=== PATIENT | male | born 1940 | race Caucasian/White ===

== ENCOUNTER 2018-04-07 16:30 | Emergency (ER) | payer MEDICARE ==
[~2018-04-07] VITALS: Ht 170.2 cm; Wt 113.4 kg
[2018-04-07 18:10] VITALS: BP 175/105
== END 2018-04-07 18:07 | disposition home or self-care (01) ==
LOC: ER 16:30
DX: S00.83XA Contusion of other part of head, initial encounter (principal); R11.10 Vomiting, unspecified; W22.09XA Striking against other stationary object, initial encounter; Y92.512 Supermarket, store or market as the place of occurrence of the external cause; I10 Essential (primary) hypertension; E78.5 Hyperlipidemia, unspecified; E07.9 Disorder of thyroid, unspecified
CPT/HCPCS: 99282

== ENCOUNTER 2020-04-28 06:57 | Inpatient (IN) | payer MEDICARE ==
[~2020-04-28] VITALS: Ht 170.2 cm; Wt 122.6 kg
--- OUTSIDE RECORDS SUMMARY | 2020-04-28 06:59 | XMS REPORT | Summary of Care ---
Author Author ZOË Lott M.A. [facility] Organization Unknown Address [facility] Phone Unavailable Care Team Providers Care Television Equipment Operator Name Role Phone Trixie Lott M.A. Unavailable Unavailable WILMAR GALLO [place], PABLO Unavailable Unavailable NIMISHA BEVERLY, ALIYAH Banegas Unavailable Unavailable NOEMY RD [place], MILI Chamorro Unavailable Unavailable Unavailable Unavailable Functional Status Name Dates Details Functional status health issues are not documented Status: Name Dates Details Cognitive status health issues are not d ocumented Status: Problems Name Dates Details Hearing loss (389.9, H91.90) Status: Active Hypothyroidism (244.9, E03.9) Status: Active Morbid obesity (278.01, E66.01) Status: Active Mixed hyperlipidemia (272.2, E78.2) Status: Active Medications Name Dates Details Pravastatin Sodium 20 MG Oral Tablet TAKE 1 TABLET DAILY. * Start : 06-Nov-2019 Active Levothyroxine Sodium 50 MCG Oral Tablet TAKE 1 TABLET DAILY. * Refills: 0 * Start : 06-Nov-2019 Active Losartan Potassium 100 MG Oral Tablet TAKE 1 TABLET DAILY. * Quantity: 90 Refills: 1 * Start : 06-Nov-2019 Active Tamsulosin HCl - 0.4 MG Oral Capsule TAKE 1 CAPSULE DAILY * Quantity: 90 Refills: 1 * Start : 06-Nov-2019 Active Allergies and Adverse Reactions Name Dates Details No Known Drug Allergies (Allergy) Status : Active Past Medical History Name Dates Details History of hypertension (V12.59, Z86.79) Status: Resolved Procedures Procedure Dates Details History of Tonsillectomy Completed Immunization Name Dates Details Varicella Disease on: Nov-1947 Fluzone High-Dose 0.5 ML Intramuscular S uspension Prefilled Syringe on: 19-Aug-2018 Family History Name Dates Details Family history of intellectual disabilit y (V18.4, Z81.0) Status: Active Name Dates Details Family history of malignant neoplasm of colon (V16.0, Z80.0) Status: Active Social History Name Dates Details - Status: Name Dates Details Never smoked tobacco (finding) Vital Signs Date Test Result Details No Known Vitals to report Results Date Description Value Details Results not documented Plan of Care Name Dates Details Planned Observations Planned Goals not documented Instructions Name Dates Details Instructions not documented Encounters Appointment; PABLO URBAN D.O. Encounter Diagnosis: Problem not documented On: 06-Nov-2019 13:00 Appointment; AMADEO BEASLEY Encounter Diagnosis: Problem not documented On: 04-Dec-2019 13:00 Appointment; MILI SALGUERO RD Encounter Diagnosis: Problem not documented On: 01-Jan-2020 11:00
--- OUTSIDE RECORDS SUMMARY | 2020-04-28 06:59 | XMS REPORT | Summary of Care ---
Author ZOË Mandel M.A. r Organization Unknown Address [facility] Phone Unavailable Care Team Providers Care Luncheonette Manager Name Role Phone Clif Butcher M.A. Unavailable Unavailable YE DO AL, LORENARISSA Unavailable Unavailable ALIYAH BANSAL MD Unavailable Unavailable Unavailable Unavailable Functional Status Name Dates Details Functional status health issues are not documented Status: Name Dates Details Cognitive status health issues are not d ocumented Status: Problems Name Dates Details Hearing loss (389.9, H91.90) Status: Active Hypothyroidism (244.9, E03.9) Status: Active Mixed hyperlipidemia (272.2, E78.2) Status: Active Morbid obesity (278.01, E66.01) Status: Active Medications Name Dates Details Pravastatin [...] Z86.79) Status: Resolved Procedures Procedure Dates Details [QH] LIPID PANEL WITH REFLEX TO DIRECT LDL Date: 06-Nov-2019 [[facility]] CBC (INCLUDES DIFF/PLT) Date: 06-Nov-2019 [[facility]] CMP W/EGFR Date: 06-Nov-2019 [[facility]] TSH, 3RD GENERATION W/REFLEX TO FT4 Date: 06-Nov-2019 History of Tonsillectomy Completed Immunization Name Dates Details Varicella Disease on: Nov-1947 Fluzone High-Dose 0.5 ML Intramuscular S uspension Prefilled Syringe on: 19-Aug-2018 Family History Name Dates Details Family history of intellectual disabilit y (V18.4, Z81.0) Status: Active Name Dates Details Family history of malignant neoplasm of colon (V16.0, Z80.0) Status: Active Social History Name Dates Details - Status: Name Dates Details Never smoker Vital Signs Date Test Result Details [id number] BP Systolic 117 mm[Hg] Status: Comments: Lo cation: LUE; Position: Sitting BP Diastolic 76 mm[Hg] Status: Comments: Lo cation: LUE; Position: Sitting Physical Findings 1 Status: Comments: PH Q-9 Adult Depression Screening Physical Findings 0 Status: Comments: Al cohol Screen - How many times in the past yr have you had 5 (for M) or 4 (for F) or 4 (for all > 65yrs) or more drinks in a day? Weight 269 lb Status: Height 67.5 in Status: Body Mass Index Calculated 41.51 kg/m2 Status: Body Surface Area Calculated 2.31 m2 Status: Temperature 97.2 f Status: Comments: Me thod: Temporal Respiration Rate 81 /min Status: Heart Rate 81 /min Status: Results Date Description Value Details [id number] [[facility]] CMP W/EGFR Glucose 125 mg/dL (Above high threshold ) Range: 65-99 BUN 13 mg/dL Range: 8-27 Creatinine 0.97 mg/dL Range: 0.76-1.27 eGFR If NonAfricn Am 75 mL/min/1.7 Range: >59 eGFR If Africn Am 87 mL/min/1.7 Range: >59 BUN/Creatinine Ratio 13 Range: 10-2 4 Sodium, Serum 140 mmol/L Range: 134-144 Potassium 4.5 mmol/L Range: 3.5-5.2 Chloride 99 mmol/L Range: 96-106 Carbon Dioxide, Total 24 mmol/L Range: 20- 29 Calcium, Serum 9.4 mg/dL Range: 8.6-10.2 Protein, Total 7.4 g/dL Range: 6.0-8.5 Albumin 5.0 g/dL (Above high threshold) Range: 3.5-4.8 Globalulin, Total 2.4 g/dL Range: 1.5-4.5 A/G Ratio 2.1 Range: 1.2-2.2 Bilirubin, Total 0.8 mg/dL Range: 0.0-1.2 Alkaline Phosphatase 52 {IU/L} Range: 39-1 17 AST (SGOT) 23 {IU/L} Range: 0-40 ALT (SGPT) 25 {IU/L} Range: 0-44 [id number] [[facility]] CBC (INCLUDES DIFF/PLT) WBC 7.8 {x10E3/uL} Range: 3.4-10.8 RBC 4.87 {x10E6/uL} Range: 4.14-5.8 0 Hemoglobin 14.2 g/dL Range: 13.0-17.7 Hematocrit 42.8 % Range: 37.5-51.0 MCV 88 fL Range: 79-97 MCH 29.2 pg Range: 26.6-33.0 MCHC 33.2 g/dL Range: 31.5-35.7 RDW 13.9 % Range: 12.3-15.4 Comments: Effective November 24, 2019, the RDW pediatric reference interval will be removed and the adult reference interval will be changing to: Female 11.7 - 15.4 Male 11.6 - 15.4 Platelets 272 {x10E3/uL} Range: 150-450 Neutrophils 54 % Range: Not Estab . Lymphs 36 % Range: Not Estab . Monocytes 9 % Range: Not Estab . Eos 1 % Range: Not Estab . Basos 0 % Range: Not Estab . Immature Cells Neutrophils (Absolute) 4.2 {x10E3/uL} Range: 1. 4-7.0 Lymphs (Absolute) 2.8 {x10E3/uL} Range: 0.7-3.1 Monocytes(Absolute) 0.7 {x10E3/uL} Range: 0.1-0 .9 Eos (Absolute) 0.1 {x10E3/uL} Range: 0.0-0.4 Baso (Absolute) 0.0 {x10E3/uL} Range: 0.0-0.2 Immature Granulocytes 0 % Range: Not Estab. Immature Grans (Abs) 0.0 {x10E3/uL} Range: 0.0- 0.1 NRBC Hematology Comments: [id number] [L] LP Cholesterol, Total 208 mg/dL (Above high thresh old) Range: 100-199 Triglycerides 241 mg/dL (Above high threshold ) Range: 0-149 HDL Cholesterol 39 mg/dL (Below low threshold) Range: >39 VLDL Cholesterol Juan J 48 mg/dL (Above high thres hold) Range: 5-40 LDL Cholesterol Calc 121 mg/dL (Above high thre shold) Range: 0-99 Comment: [id number] [[facility]] TSH, 3RD GENERATION TSH 2.890 {uIU/mL} Range: 0.450-4.5 00 Plan of Care Name Dates Details Planned Observations Planned Goals not documented Planned Encounters Appointment; AMADEO BEASLEY On: 04-Dec-2019 13:00 Appointment; MILI SALGUERO RD On: 01-Jan-2020 11:00 Appointment; PABLO URBAN D.O. On: 05-Feb-2020 15:00 Instructions Name Dates Details Instructions not documented Encounters Appointment; PABLO URBAN D.O. Encounter Diagnosis: Problem not documented On: 06-Nov-2019 13:00
--- OUTSIDE RECORDS SUMMARY | 2020-04-28 06:59 | XMS REPORT | Summary of Care ---
Author Author [facility] Organization [facility] Address Unknown Phone Unavailable Encounter HQ Encntr_alias(FIN) [id number] Date(s): 05/14/18 - 05/14/18 [facility] [place] [address] [place] [phone] Discharge Disposition: Home or Self Care Attending Physician: Davey Lyman MD Vital Signs No data available for this section Problem List No data available for this section Allergies, Adverse Reactions, Alerts No data available for this section Medications No data available for this section Results No data available for this section Immunizations No data available for this section Procedures No data available for this section Social History No data available for this section Assessment and Plan No data available for this section
--- OUTSIDE RECORDS SUMMARY | 2020-04-28 06:59 | XMS REPORT | Summary of Care ---
Author Author ZOË SALGUERO RD [facility] Organization Unknown Address Unknown Phone Unavailable Care Team Providers Care Senior Instructional Designer Name Role Phone NOEMY GILBERT, MILI Unavailable Unavailable PABLO ENGLISH Unavailable Unavailable ALIYAH BANSAL MD Unavailable Unavailable NOEMY GILBERT [place], [facility] J Unavailable Unavailable Unavailable Unavailable Functional Status Name [...] smoker Vital Signs Date Test Result Details [id number] Height 67.5 in Status: Weight 277.6 lb Status: Body Mass Index Calculated 42.84 kg/m2 Status: Body Surface Area Calculated 2.34 m2 Status: Results Date Description Value Details Results not documented Plan of Care Name Dates Details Planned Observations Planned Goals not documented Planned Encounters Appointment; PABLO URBAN D.O. On: 05-Feb-2020 15:00 Appointment; MILI SALGUERO RD On: 12-Feb-2020 15:00 Interventions Provided Plan* The following items regarding the patient's goals were discussed and reviewed in detail on 01/01/2020. * Blood Sugar Monitoring * Nutrition * * Portion control: To begin, eat less of what is typically eaten and by 2 weeks cut portions in half. * * Use label information to make wiser food choices, and count carbs as instructed. * * AVOID all sugary beverages to include juice, regular soda, punch, sugared tea and sports drinks. * * Fat sources discussed and suggestion made to limit added and hidden fat. These fat grams should be considered as allowed daily fat servings. * Exercise * * Exercise 3-5 times each week for 30-60 minutes. * * Do light weight lifting during downtime in evening. * * Do basic calisthenics each day for 10-15 minutes. * Miscellaneous Discussion/Summary* Patient's understanding of counseling material was excellent interacted well asked questions, which were answered * Learning barriers include: None. Instructions Name Dates Details Instructions not documented Encounters Appointment; PABLO URBAN D.O. Encounter Diagnosis: Problem not documented On: 06-Nov-2019 13:00 Appointment; AMADEO BEASLEY Encounter Diagnosis: Problem not documented On: 04-Dec-2019 13:00 Appointment; MILI SALGUERO RD Encounter Diagnosis: Problem not documented On: 01-Jan-2020 11:00
--- OUTSIDE RECORDS SUMMARY | 2020-04-28 06:59 | XMS REPORT | Continuity of Care Document ---
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 05/14/2018 [facility] [place] Diagnosis Active 2018-05-14 00:01:00 2018-05-14 14:37:00 Gustabo French 490 - BRONCHITIS NOS 490 - BRONCHITIS NOS Active 10/25/2011 [facility] [place] Diagnosis Active 2011-10-25 00:01:00 2011-10-25 10:47:00 [facility] [place] History of hypertension History of hypertension Problem Resolved [facility] Hearing loss Hearing loss Problem Active [facility] Hypothyroidism Hypothyroidism Problem Active [facility] Mixed hyperlipidemia Mixed hyperlipidemia Problem Active [facility] Morbid obesity Morbid obesity Problem Active [facility] Allergies, Adverse Reactions, Alerts Allergy Name Allergy Type Status Severity Reaction(s) Onset Date Inacti ve Date Treating Clinician Comments Source No Known Allergies DA Active U 2015-05-27 00:00:00 [facility] Family History Family Member Diagnosis Comments Start Date Stop Date Source natural daughter Family history of intellectual disability [facility] Mother Family history of malignant neoplasm of colon [facility] Social History Social Habit Start Date Stop Date Quantity Comments Source Social History 2018-04-13 04:59:00 2018-04-13 04:59:00 [facility] Smoking Status Start Date Stop Date Source Never smoked tobacco (finding[facility] Medications Ordered Medication Name Filled Medication Name Start Date Stop Da te Current Medication? Ordering Clinician Indication Dosage Frequency Signature (SIG) Comments Components Source Pravastatin Sodium 20 MG Oral Tablet Pravastatin Sodium 20 M G Oral Tablet 2019-11-06 00:00:00 Yes 1 QD TAKE 1 TABLET DOROTHY Y. [facility] Levothyroxine Sodium 50 MCG Oral Tablet Levothyroxine Sodium 50 MCG Oral Tablet 2019-11-06 00:00:00 Yes 1 QD TAKE 1 TABLET DOROTHY Y. [facility] Losartan Potassium 100 MG Oral Tablet Losartan Potassium 100 MG Oral Tablet 2019-11-06 00:00:00 Yes 1 QD TAKE 1 TABLET DOROTHY Y. [facility] Tamsulosin HCl - 0.4 MG Oral Capsule Tamsulosin HCl - 0.4 MG Oral Capsule 2019-11-06 00:00:00 Yes 1 QD TAKE 1 CAPSULE BELTRAN LY [facility] Immunizations Ordered Immunization Name Filled Immunization Name Date Status Comments Source Fluzone High-Dose 0.5 ML Intramuscular Suspension Prefilled Syringe 2018-08-19 00:00:00 Completed [facility] Varicella Disease Unknown Completed [facility] Vital Signs Vital Name Observation Time Observation Value Comments Source Height 2020-01-01 12:50:00 67.5 [in_us] [facility] Weight 2020-01-01 12:50:00 277.6 [lb_av] [facility] Body Mass Index Calculated 2020-01-01 12:50:00 42.84 kg/m2 [facility] BP Systolic 2019-11-06 13:12:00 117 mm[Hg] Location: SHADI Anderws on: Sitting [facility] BP Diastolic 2019-11-06 13:12:00 76 mm[Hg] Location: SHADI Andrews on: Sitting [facility] Weight 2019-11-06 13:12:00 269 [lb_av] [facility] Height 2019-11-06 13:12:00 67.5 [in_us] [facility] Body Mass Index Calculated 2019-11-06 13:12:00 41.51 kg/m2 [facility] Temperature 2019-11-06 13:12:00 97.2 [degF] Method: Temporal [facility] Respiration Rate 2019-11-06 13:12:00 81 /min [facility] Heart Rate 2019-11-06 13:12:00 81 /min [facility] Procedures Procedure Date / Time Performed Performing Clinician Sourc e [QH] LIPID PANEL WITH REFLEX TO DIRECT LDL 2019-11-06 00:00:00 [facility] [[facility]] CBC (INCLUDES DIFF/PLT) 2019-11-06 00:00:00 [facility] [[facility]] CMP W/EGFR 2019-11-06 00:00:00 [facility] [[facility]] TSH, 3RD GENERATION W/REFLEX TO FT4 2019-11-06 00:00:00 [facility] History of Tonsillectomy [facility] Encounters Start Date/Time End Date/Time Encounter Type Admission Type Att[facility] Facility Care Department Encounter ID Source 2020-01-01 11:00:00 2020-01-01 11:00:00 Appointment; MILI SALGUERO RD WRIGHT, TISH, RD [id number] 2019-12-04 13:00:00 2019-12-04 13:00:00 Appointment; EMA BEASLEY KIMBERLY [facility] [id number] [facility] 2019-11-06 13:00:00 2019-11-06 13:00:00 Appointment; PABLO URBAN D.O. YEH, SHAO-CHUN, D.O. [facility] Family Practice [facility] [id number] [facility] 2018-05-14 14:25:00 2018-05-14 23:59:00 Outpatient Davey Lyman HOIP HOIP [id number] 2018-04-12 08:03:00 2018-04-12 23:59:00 Outpatient Davey Lyman OIP OIP [id number] 2018-04-07 16:30:00 2018-04-07 18:07:[address] [facility] [id number] [facility] Results Test Description Test Time Test Comments Results Result Comments Source [[facility]] CMP W/EGFR 2019-11-06 15:20:00 Test Item Glucose; Above High Threshold (test code = 2345-7) 125 mg/dL 65- 99 BUN (test code = 3094-0) 13 mg/dL 8-27 Creatinine (test code = 2160-0) 0.97 mg/dL 0.76-1.27 eGFR If NonAfricn Am (test code = 19067-6) 75 mL/min/1.7 >59 eGFR If Africn Am (test code = 24341-2) 87 mL/min/1.7 >59 BUN/Creatinine Ratio (test code = 3097-3) 13 10-24 Sodium, Serum (test code = 2951-2) 140 mmol/L 134-144 Potassium (test code = 2823-3) 4.5 mmol/L 3.5-5.2 Chloride (test code = 2075-0) 99 mmol/L 96-106 Carbon Dioxide, Total (test code = 2027-9) 24 mmol/L 20-29 Calcium, Serum (test code = 33503-0) 9.4 mg/dL 8.6-10.2 Protein, Total (test code = 2885-2) 7.4 g/dL 6.0-8.5 Albumin; Above High Threshold (test code = 1751-7) 5.0 g/dL 3.5 -4.8 Globalulin, Total (test code = 53422-7) 2.4 g/dL 1.5-4.5 A/G Ratio (test code = 1759-0) 2.1 1.2-2.2 Bilirubin, Total (test code = 1975-2) 0.8 mg/dL 0.0-1.2 Alkaline Phosphatase (test code = 6768-6) 52 {IU/L} 39-117 AST (SGOT) (test code = 1920-8) 23 {IU/L} 0-40 ALT (SGPT) (test code = 1742-6) 25 {IU/L} 0-44 [facility]] CBC (INCLUDES DIFF/PLT)2019-11-06 15:20:00* Test Item Value Reference Range Interpretation Comments WBC (test code = 6690-2) 7.8 {x10E3/uL} 3.4-10.8 RBC (test code = 789-8) 4.87 {x10E6/uL} 4.14-5.80 Hemoglobin (test code = 718-7) 14.2 g/dL 13.0-17.7 Hematocrit (test code = 4544-3) 42.8 % 37.5-51.0 MCV (test code = 787-2) 88 fL 79-97 MCH (test code = 785-6) 29.2 pg 26.6-33.0 MCHC (test code = 786-4) 33.2 g/dL 31.5-35.7 RDW (test code = 788-0) 13.9 % 12.3-15.4 Ef fective November 24, 2019, the RDW pediatric reference interval will be removed and the adult reference interval will be changing to: Female 11.7 - 15.4 Male 11.6 - 15.4 Platelets (test code = 777-3) 272 {x10E3/uL} 150-450 Neutrophils (test code = 770-8) 54 % Not Estab. Lymphs (test code = 736-9) 36 % Not Estab. Monocytes (test code = 5905-5) 9 % Not Estab. Eos (test code = 713-8) 1 % Not Estab. Basos (test code = 706-2) 0 % Not Estab. Immature Cells (test code = Immature Cells) See Comment Neutrophils (Absolute) (test code = 751-8) 4.2 {x10E3/uL} 1.4-7.0 Lymphs (Absolute) (test code = 731-0) 2.8 {x10E3/uL} 0.7-3.1 Monocytes(Absolute) (test code = 742-7) 0.7 {x10E3/uL} 0.1-0.9 Eos (Absolute) (test code = 711-2) 0.1 {x10E3/uL} 0.0-0.4 Baso (Absolute) (test code = 704-7) 0.0 {x10E3/uL} 0.0-0.2 Immature Granulocytes (test code = 73614-7) 0 % Not Estab. Immature Grans (Abs) (test code = 65487-0) 0.0 {x10E3/uL} 0.0-0.1 NRBC (test code = 14452-1) See Comment Hematology Comments: (test code = 14832-9) See Comment [facility][L] [id number] 15:20:00* Test Item Value Reference Range Interpretation Comments Cholesterol, Total; Above High Threshold (test code = 2093-3) 20 8 mg/dL 100-199 Triglycerides; Above High Threshold (test code = 2571-8) 241 mg/dL 0-149 HDL Cholesterol; Below Low Threshold (test code = 2085-9) 39 mg/dL >39 VLDL Cholesterol Juan J; Above High Threshold (test code = 58191-3) 48 mg/dL 5-40 LDL Cholesterol Calc; Above High Threshold (test code = 98078-1) 121 mg/dL 0-99 Comment: (test code = Comment:) See Comment [facility]] TSH, 3RD [id number] 15:20:00* Test Item Value Reference Range Interpretation Comments TSH (test code = 85807-8) 2.890 {uIU/mL} 0.450-4.500 [facility] [id number] 16:37:00 RUN DATE: 10/10/19 [employer] PAGE 1 RUN TIME: 1637 Specimen Inqui ry RUN USER: INTERFACE PATIENT: ZOË RENTERIA ACCT #: V [id number] LOC: [place] U #: [id number] AGE/SX: 79/M ROOM: RE10/09/19REG DR: Jaguar Fajardo MD : 42 BED: DIS: STATUS: [facility] TLOC: SPEC #: [id number] RECD: 10/09/19 STATUS: [facility] #: [id number] MISTI: 10/09/19-1135 [facility] DR: Jaguar Fajardo MD ENTERED: 10/09/19 SP TYPE: COLONBX OTHR DR: Davey Lyman MD ORDERED: GROSS COPIES TO: Jaguar Fajardo MD [address] [place], [place] [address] Davey Lyman MD [address] [place] [address] PROCEDURES: GROSS (10/10/19-1212) TISSU ES: TRANSVERSE COLON - POLYP HOT SNARE CLINICAL HISTORY COL LECTION DATE: 10/09/19 COLON SCREENING HISTORY OF POLYPS FINAL PORTER GNOSIS Transverse colon polyps, polypectomy: TUBULAR ADENOMA (1) HYPERPLASTIC POLYPS (MULTIPLE FRAGMENTS) NEGATIVE FOR HIGH GRADE DYSPLA MYNOR OR MALIGNANCY DMW/sm D 66162 MACROSCOPIC The spec imen is received in formalin, labeled with the patient's name, and identified as "transverse colon polyps", and consists of multiple valladares biopsy fragments ra nging from 0.2 to the largest piece that measures 0.6 cm. The larger polyp is inked and trisected. The specimen is entirely submitted in a single cassette . CONTINUED ON NEXT PAGE TRI [place] DATE: 10/10/19 [facility] PAGE 2 RUN TIME: 1637 Specimen Inquiry RUN USER: INTERFACE SPEC #: [id number] PATIENT: ZOË RENTERIA #[id number] (Continued) MACROSCOPIC (Co ntinued) GROSS PERFORMED AT [facility] [place] [facility] [address] [place] [address] (P) MICROSCOPIC All of the stains, including any controls performed, stain appropriately. MICROSCOPIC PERFORMED AT [facility] [address] [place] [address] [phone] PERFORMING SITE Diagnosis performed at: [facility], [place] [address] [address] Signed SIG NATURE ON FILE Khurram Fisher MD 10/10/19 1637 ------- ----- END OF REPORT BASIC METABOLIC [id number] 13:48:00* Test Item Value Reference Range Interpretation Comments SODIUM (test code = NA) 143 mmol/L 136-145 N POTASSIUM (test code = K) 4.6 mmol/L 3.5-5.1 N CHLORIDE (test code = CL) 110.0 mmol/L 98-107 H CARBON DIOXIDE (test code = CO2) 27.0 mmol/L 21-32 N ANION GAP (test code = GAP) 10.6 10-20 N GLUCOSE (test code = GLU) 161 mg/dL 74-106 H BLOOD UREA NITROGEN (test code = BUN) 15 mg/dL 7-18 N GLOMERULAR FILTRATION RATE (test code = GFR) > 60 mL/min >=60 Estimated GFR by using Modified MDRD formula.Chronic kidney disease is defined as either kidney damageor GFR <60 mL/min/1.73 m2 for >3 months. CREATININE (test code = CREAT) 0.90 mg/dL 0.7-1.3 N BUN/CREATININE RATIO (test code = BUN/CREA) 15.9 10-20 N CALCIUM (test code = CA) 8.7 mg/dL 8.5-10.1 N CBC W/AUTO [id number] 12:59:00* Test Item Value Reference Range Interpretation Comments WHITE BLOOD CELL (test code = WBC) K/mm3 4.5-12.5 RED BLOOD CELL (test code = RBC) mill/mm3 4.0-5.8 HEMOGLOBIN (test code = HGB) 13.5 gram/dL 13.0-17.5 N HEMATOCRIT (test code = HCT) 42.6 % 42.0-52.0 N MEAN CELL VOLUME (test code = MCV) fL 80-98 MEAN CELL HGB (test code = MCH) picogram 27.0-33.0 MEAN CELL HGB CONCETRATION (test code = MCHC) gram/dL 33.0-36. 0 RED CELL DISTRIBUTION WIDTH (test code = RDW) % 11.6-16. 2 RED CELL DISTRIBUTION WIDTH SD (test code = RDW-SD) fL 37 .0-51.0 PLATELET COUNT (test code = PLT) K/mm3 150-450 MEAN PLATELET VOLUME (test code = MPV) fL 6.7-11.0 NEUTROPHIL % (test code = NT%) % 39.0-69.0 IMMATURE GRANULOCYTE % (test code = IG%) % 0.0-5.0 LYMPHOCYTE % (test code = LY%) % 25.0-55.0 MONOCYTE % (test code = MO%) % 0.0-10.0 EOSINOPHIL % (test code = EO%) % 0.0-5.0 BASOPHIL % (test code = BA%) % 0.0-1.0 NEUTROPHIL # (test code = NT#) K/mm3 1.8-7.7 LYMPHOCYTE # (test code = LY#) K/mm3 1.0-5.0 MONOCYTE # (test code = MO#) K/mm3 0-0.8 EOSINOPHIL # (test code = EO#) K/mm3 0.0-0.5 BASOPHIL # (test code = BA#) K/mm3 0.0-0.2 CBC W/AUTO [id number] 12:59:00* Test Item Value Reference Range Interpretation Comments WHITE BLOOD CELL (test code = WBC) 7.9 K/mm3 4.5-12.5 N RED BLOOD CELL (test code = RBC) 4.59 mill/mm3 4.0-5.8 N HEMOGLOBIN (test code = HGB) 13.5 gram/dL 13.0-17.5 N HEMATOCRIT (test code = HCT) 42.6 % 42.0-52.0 N MEAN CELL VOLUME (test code = MCV) 92.8 fL 80-98 N MEAN CELL HGB (test code = MCH) 29.4 picogram 27.0-33.0 N MEAN CELL HGB CONCETRATION (test code = MCHC) 31.7 gram/dL 33.0-36. 0 L RED CELL DISTRIBUTION WIDTH (test code = RDW) 13.3 % 11.6-16. 2 N RED CELL DISTRIBUTION WIDTH SD (test code = RDW-SD) 45.1 fL 37 .0-51.0 N PLATELET COUNT (test code = PLT) 240 K/mm3 150-450 N MEAN PLATELET VOLUME (test code = MPV) 10.4 fL 6.7-11.0 N NEUTROPHIL % (test code = NT%) 59.7 % 39.0-69.0 N IMMATURE GRANULOCYTE % (test code = IG%) 0.3 % 0.0-5.0 N LYMPHOCYTE % (test code = LY%) 28.6 % 25.0-55.0 N MONOCYTE % (test code = MO%) 8.4 % 0.0-10.0 N EOSINOPHIL % (test code = EO%) 2.2 % 0.0-5.0 N BASOPHIL % (test code = BA%) 0.8 % 0.0-1.0 N NUCLEATED RBC % (test code = NRBC%) 0.0 % 0-0 N NEUTROPHIL # (test code = NT#) 4.72 K/mm3 1.8-7.7 N IMMATURE GRANULOCYTE # (test code = IG#) 0.02 x10 3/uL 0-0.03 N LYMPHOCYTE # (test code = LY#) 2.25 K/mm3 1.0-5.0 N MONOCYTE # (test code = MO#) 0.66 K/mm3 0-0.8 N EOSINOPHIL # (test code = EO#) 0.17 K/mm3 0.0-0.5 N BASOPHIL # (test code = BA#) 0.06 K/mm3 0.0-0.2 N NUCLEATED RBC # (test code = NRBC#) 0.00 K/mm3 0.0-0.1 N MANUAL DIFF REQUIRED (test code = MDIFF) NO
--- OUTSIDE RECORDS SUMMARY | 2020-04-28 06:59 | XMS REPORT | Continuity of Care Document ---
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 COMPARISON: Cervical spine x-ray from 04/12/2018 DISCUSSION: No definite listhesis at cervicothoracic junction based on anterior vertebral body margins.There is normal alignment of the thoracic spine vertebral bodies. Moderate midthoracic spondylosis with mild anterior wedge deformities in the midthoracic spine especially T6-T11. Bridging osteophytes suggesting diffuse idiopathic skeletal hyperostosis. No definite acute fractures or dislocations a re seen. The pedicles are grossly intact. If clinical concern persists may consider further evaluation with CT or MRI of the thoracic spine. IMPRESSION: Mild anterior wedge deformities appear chronic related to midthoracic spondylosis with diffuse idiopathic skeletal hyperostosis. However, correlate for focal tenderness in the mid to lower thoracic spine. 05/14/2018 [facility] [place] Spine lumbar 2 or 3 views DX E XAMINATION: Lumbar spine series Spine lumbar 2 or 3 views DX , 05/14/2018 2:45 PM CDT. CLINICAL INDICATION: 77 years Male - M47.23 Other spon dylosis with radiculopathy, cervicothoracic region Comparison: None available. DISCUSSION: Thoracic Spine reported separately. L4-L5 grade 1 anterolisthesis with moderate intervertebral disc height loss, facet hypertrophy, and possible pars defects are noted. No fractures or dislocations are seen. The pedicles and transverse processes are intact. Mild vascular calcifications noted. If clinical concern persists, consider further evaluation with CT or MRI of the lumbar spine. IMPRESSION: L4-L5 grade 1 anterior listhesis with moderate facet hypertrophy. If there is clinical concern for instability, consider flexion-extension views. Also consider oblique views to evaluate for pars defects. 05/14/2018 [facility] [place] Brain wo contrast CT I have re viewed this study, and concur with the previous interpretation. Brain wo contrast CT CLINICAL HISTORY: - S06.0X0D Concussion without loss of consciousness, subsequent encounter; COMPARISON: None TECHNIQUE: Contiguous transaxial images of the brain were performed without administration of IV contrast. Reformations were performed in sagittal and coronal projections. FINDINGS: BRAIN PARENCHYMA: There is no evidence for space-occupying lesions, mass effect or vasogenic edema. No evidence for parenchymal bleed, extra-axial collections or midline shift. Minimal decrease in attenuation in the periventricular white matter is likely related to chronic ischemic change from small vessel disease. No acute infarct is noted. Intracranial vascular calcifications are noted. VENTRICLES: There is dilation of ventricles and subarachnoid spaces but not out of proportion to the underlying cerebral atrophy. BRAINSTEM, SELLA AND ORBITS: No evidence for Chiari malformation. No space- occupying lesion is visualized in the sella. Visualized portion of the orbits are unremarkable. CALVARIUM AND SKULL BASE: No displaced bony fractures or other significant bony abnormality is visualized. MASTOIDS AND PARANASAL SINUSES: The visualized paranasal sinuses are clear. Mastoid air cells are clear bilaterally. IMPRESSION: No acute brain abnormality is noted. Further evaluation may be obtained with MRI of brain as clinically indicated. SL: [id number] 04/12/2018 [facility] [place] Spine cervical 2 or 3 view DX Spine cervical 2 or 3 view DX COMPARISON: None CLINICAL HISTORY: - concussion hit head 5.19.18 FINDINGS: There is no evidence for fracture or subluxation in the 1st 6 cervical vertebral bodies. The C7 vertebral body and cervicothoracic junction is not visible on the lateral examination. The prevertebral soft tissues are within normal limits. There is anterior spondylosis noted at C4-C5 and C5-C6 levels. Decrease in disc space height is noted at C5-C6 level. Mild facet arthrosis is noted throughout the mid to lower C-spine IMPRESSION: No evidence for fracture or subluxation in the visualized portion of C-spine. Ndoq-ea-[id number] degenerative changes, as discussed above. Limited evaluation of the lower portion of C-spine on the current images. More detailed evaluation may be obtained with a swimmer's view and/or oblique views. NOTE: An attempt was made by the technologist to reach the patient for additional films prior to this dictation. The patient may return at his convenience and the additional images will be performed at no extra charge and addendum can be issued by the radiologist at that time. SL: [id number] 04/12/2018 [facility] [place] Consultation Notes No Data Provided for This Section Discharge Summaries No Data Provided for This Section History and Physicals No Data Provided for This Section Vital Signs No Data Provided for This Section Encounters Location Location Details Encounter Type Encounter Number Reason For Visit Attending Provider ADM Date DC Date Status Source OD [id number] 490 - BRONCHITIS NOS DAVEY KRISHNAMURTHY 10/25/2011 Active [facility] [place] [facility] [id number] Davey Krishnamurthy 04/12/2018 04/13/2018 [facility] [place] [facility] [id number] 02 Davey Krishnamurthy 05/14/2018 05/15/2018 [facility] [place] Procedures No Data Provided for This Section Assessment and Plan No Data Provided for This Section Plan of Care No Data Provided for This Section Social History Social History Date Source No data available for this section 05/15/2018 [facility] [place] No data available for this section 04/13/2018 [facility] [place] Family History No Data Provided for This Section Advance Directives No Data Provided for This Section Functional Status No Data Provided for This Section
[2020-04-28] MEDS ORDERED: ONDANSETRON HCL INJ 2MG/ML 2ML 2 MG/ML VIAL IV STA (07:22)
[2020-04-28] MEDS ORDERED: PANTOPRAZOLE 40 MG 10ML VIAL IV STA (07:22)
[2020-04-28] MEDS ORDERED: SODIUM CHLORIDE 0.9% 1000ML 1,000 ML IV STA ×3 (07:22→12:11)
[2020-04-28] MEDS ORDERED: SODIUM CHLORIDE 0.9% 1000ML 1,000 ML ONE (07:51)
[2020-04-28 07:54] LABS: BASOPHILS # (AUTO) 0.1 (0.0-0.1); BASOPHILS % 0.3 % (0.0-1.0); EOSINOPHILS # (AUTO) 0.1 (0.0-0.4); EOSINOPHILS % 0.4 % (0.0-6.0); HEMATOCRIT 42.3 % (38.2-49.6); HEMOGLOBIN 14.1 g/dL (14.0-18.0); LYMPHOCYTES # (AUTO) 0.7 (1.0-3.2); LYMPHOCYTES % 4.4 % (18.0-39.1); MEAN CORPUSCULAR HEMOGLOBIN 29.5 pg (28-32); MEAN CORPUSCULAR HGB CONC 33.3 g/dL (31-35); MEAN CORPUSCULAR VOLUME 88.5 fL (81-99); MONOCYTES # (AUTO) 1.2 (0.2-0.8); MONOCYTES % 7.1 % (4.4-11.3); NEUTROPHILS # (AUTO) 14.3 (2.1-6.9); NEUTROPHILS % 87.3 % (38.7-80.0); PLATELET COUNT 211 x10e3/uL (140-360); RED BLOOD COUNT 4.78 x10e6/uL (4.3-5.7); RED CELL DISTRIBUTION WIDTH 13.5 % (11.7-14.4)
[2020-04-28] MEDS ORDERED: PIPER-TAZ 3.375 GM 50 ML IV ONE (08:15)
[2020-04-28 08:24] LABS: ALANINE AMINOTRANSFERASE 24 IU/L (0-55); ALBUMIN/GLOBULIN RATIO 1.1 (0.8-2.0); ALKALINE PHOSPHATASE 52 IU/L (40-150); BLOOD UREA NITROGEN 18 mg/dL (7-26); BUN/CREATININE RATIO 17 (6-25); CALCIUM 9.4 mg/dL (8.4-10.2); CARBON DIOXIDE 21 mmol/L (22-29); CHLORIDE 101 mmol/L (98-107); CREATINE KINASE 119 IU/L (30-200); CREATININE, SERUM 1.09 mg/dL (0.72-1.25); EST GLOMERULAR FILTRATION RATE > 60 ML/MIN (60-); GLUCOSE 145 mg/dL (74-118); MAGNESIUM 1.6 MG/DL (1.3-2.1); SODIUM 135 mmol/L (136-145)
[2020-04-28 08:46] LABS: INR 0.9; PROTHROMBIN TIME 12.7 seconds (11.9-14.5)
[2020-04-28 08:47] LABS: PARTIAL THROMBOPLASTIN TIME 32.2 seconds (23.8-35.5)
--- NOTE | 2020-04-28 08:59 | Diagnostic Imaging Report ---
EXAMINATION: CHEST SINGLE (PORTABLE) INDICATION: Nausea, fever COMPARISON: None FINDINGS: LINES/TUBES:EKG leads overlie the chest. LUNGS:The lungs are moderately inflated. Mild bibasilar patchy opacities left greater than right. PLEURA:No pleural effusion or pneumothorax. MEDIASTINUM:The cardiomediastinal silhouette appears normal in size and shape. BONES/SOFT TISSUES:No acute osseous injury. ABDOMEN:No free air under the diaphragm. IMPRESSION: Mild left greater than right bibasilar patchy opacities, more likely subsegmental atelectasis than superimposed aspiration or pneumonia. Signed by: Janie Cortez MD on 04/28/2020 8:56 AM
--- NOTE | 2020-04-28 09:13 | Emergency Department Note ---
History of Present Illnes History of Present Illness Chief Complaint: General Medicine Complaints History of Present Illness This is a 79 year old male pt found on floor pt states he felt weak and went to the floor with diarrhea that started yesterday no blood noted states he was on the floor x 2 hr per ems pt had fever 101 on scene and states he was tachy on scene pt denies ems denies medical hx denies being on meds pt states he defecated on self. 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 Arrival Mode: [place] Atm Technician Required: No Onset (how long ago): day(s) (YESTERDAY) Quality: DIARRHEA Radiation: Reports non-radiation Severity: severe (MULTIPLE EPISODES OF WATERY STOOLS) Onset quality: sudden Timing of current episode: intermittent Progression: unchanged Chronicity: new Context: Denies recent illness Relieving factors: none Exacerbating factors: none Associated symptoms: Reports fever/chills, Reports nausea/vomiting (MILD, 2 EPISODES OF VOMITING), Reports weakness (GENERALIZED) Treatments prior to arrival: none Past Medical/Family History Physician Review I have reviewed the patient's past medical and family history. Any updates have been documented here. Past Medical History Recent Fever: Yes Clinical Suspicion of Infectio: Yes New/Unexplained Change in Ment: No Past Medical History: Hypertension, NE, Hypothyroidism, Hyperlipedemia Other Medical History: BPH Past Surgical History: T&A Social History Smoking Cessation: Never Smoker Counseling Performed: No Alcohol Use: None Any Illegal Drug Use: No TB Exposure/Symptoms: No Physically hurt or threatened: No Family History Family history of heart diseas: No Other Last Tetanus: UNKNOWN Any Pre-Existing Lines (PICC,: No Is patient up to date on immun: Yes Last Flu: NO Last Pneumovax: NO Review of Systems Review of Systems Constitutional: Reports weakness EENTM: Reports no symptoms Cardiovascular: Reports no symptoms Respiratory: Reports no symptoms Gastrointestinal: Reports as per HPI, Reports diarrhea, Reports nausea, Reports vomiting; Denies abdominal pain Genitourinary: Reports no symptoms Musculoskeletal: Reports no symptoms Integumentary: Reports no symptoms Neurological: Reports weakness; Denies headache Psychological: Reports no symptoms Endocrine: Reports no symptoms Hematological/Lymphatic: Reports no symptoms Review of other systems All other systems reviewed and negative. Physical Exam Related Data Allergies: Coded Allergies: No Known Allergies (Unverified , 04/07/18) Triage Vital Signs Vital Signs Date Time Temp Pulse Resp B/P (MAP) Pulse Ox O2 Delivery O2 Flow Rate FiO2 04/28/20 07:16 100.2 117 25 135/88 95 Vital signs reviewed: Yes Physical Exam CONSTITUTIONAL Constitutional: Reports well-developed, Reports well-nourished HENT HENT: Reports normocephalic, Reports atraumatic, Reports oropharynx clear/moist, Reports nose normal HENT L/R: Reports left ext ear normal, Reports right ext ear normal EYES Eyes: Reports PERRL, Reports conjunctivae normal NECK Neck: Reports ROM normal PULMONARY Pulmonary: Reports effort normal, Reports breath sounds normal CARDIOVASCULAR Cardiovascular: Reports regular rhythm, Reports heart sounds normal, Reports c apillary refill normal, Reports normal rate GASTROINTESTINAL Abdominal: Reports soft, Reports nontender, Reports bowel sounds normal GENITOURINARY Genitourinary: Reports exam deferred SKIN Skin: Reports warm, Reports dry, Reports other (DRIED STOOL ON BUTTOCKS AND DO WN BILATERAL LEGS) MUSCULOSKELETAL Musculoskeletal: Reports ROM normal NEUROLOGICAL Neurological: Reports alert, Reports oriented x 3, Reports no gross motor or sensory deficits PSYCHOLOGICAL Psychological: Reports mood/affect normal, Reports judgement normal Results Laboratory Result Diagram: 04/28/20 0737 04/28/20 0737 Laboratory Laboratory Tests Test 04/28/20 08:41 04/28/20 07:37 04/28/20 07:29 White Blood Count 16.43 x10e3/uL (4.8-10.8) Red Blood Count 4.78 x10e6/uL (4.3-5.7) Hemoglobin 14.1 g/dL (14.0-18.0) Hematocrit 42.3 % (38.2-49.6) Mean Corpuscular Volume 88.5 fL (81-99) Mean Corpuscular Hemoglobin 29.5 pg (28-32) Mean Corpuscular Hemoglobin Concent 33.3 g/dL (31-35) Red Cell Distribution Width 13.5 % (11.7-14.4) Platelet Count 211 x10e3/uL (140-360) Neutrophils (%) (Auto) 87.3 % (38.7-80.0) Lymphocytes (%) (Auto) 4.4 % (18.0-39.1) Monocytes (%) (Auto) 7.1 % (4.4-11.3) Eosinophils (%) (Auto) 0.4 % (0.0-6.0) Basophils (%) (Auto) 0.3 % (0.0-1.0) Neutrophils # (Auto) 14.3 (2.1-6.9) Lymphocytes # (Auto) 0.7 (1.0-3.2) Monocytes # (Auto) 1.2 (0.2-0.8) Eosinophils # (Auto) 0.1 (0.0-0.4) Basophils # (Auto) 0.1 (0.0-0.1) Absolute Immature Granulocyte (auto 0.08 x10e3/uL (0-0.1) Prothrombin Time 12.7 seconds (11.9-14.5) Prothromb Time International Ratio 0.90 Activated Partial Thromboplast Time 32.2 seconds (23.8-35.5) Sodium Level 135 mmol/L (136-145) Potassium Level 4.0 mmol/L (3.5-5.1) Chloride Level 101 mmol/L (98-107) Carbon Dioxide Level 21 mmol/L (22-29) Anion Gap 17.0 mmol/L (8-16) Blood Urea Nitrogen 18 mg/dL (7-26) Creatinine 1.09 mg/dL (0.72-1.25) Estimat Glomerular Filtration Rate > 60 ML/MIN (60-) BUN/Creatinine Ratio 17 (6-25) Glucose Level 145 mg/dL (74-118) Calcium Level 9.4 mg/dL (8.4-10.2) Magnesium Level 1.6 MG/DL (1.3-2.1) Total Bilirubin 0.8 mg/dL (0.2-1.2) Aspartate Amino Transf (AST/SGOT) 18 IU/L (5-34) Alanine Aminotransferase (ALT/SGPT) 24 IU/L (0-55) Alkaline Phosphatase 52 IU/L (40-150) Creatine Kinase 119 IU/L (30-200) Creatine Kinase MB 1.10 ng/mL (0-5.0) Troponin I 0.030 ng/mL (0-0.300) B-Type Natriuretic Peptide 13.2 pg/mL (0-100) Total Protein 7.5 g/dL (6.5-8.1) Albumin 4.0 g/dL (3.5-5.0) Globulin 3.5 g/dL (2.3-3.5) Albumin/Globulin Ratio 1.1 (0.8-2.0) Bedside Glucose 149 mg/dL (70-120) Lab results reviewed: Yes Imaging Imaging results reviewed: Yes Impressions EXAMINATION: CHEST SINGLE (PORTABLE) INDICATION: Nausea, fever COMPARISON: None FINDINGS: LINES/TUBES:EKG leads overlie the chest. LUNGS:The lungs are moderately inflated. Mild bibasilar patchy opacities left greater than right. PLEURA:No pleural effusion or pneumothorax. MEDIASTINUM:The cardiomediastinal silhouette appears normal in size and shape. BONES/SOFT TISSUES:No acute osseous injury. ABDOMEN:No free air under the diaphragm. IMPRESSION: Mild left greater than right bibasilar patchy opacities, more likely subsegmental atelectasis than superimposed aspiration or pneumonia. Signed by: Janie Cortez MD on 04/28/2020 8:56 AM Procedure: [id number] CT/CT ABDOMEN/PELVIS W Exam Date: 04/28/20 Exam Time: 0858 REPORT STATUS: Signed TECHNIQUE: CT of the abdomen and pelvis WITH intravenous contrast and WITHOUT oral contrast. Dose modulation, iterative reconstruction, and/or weight-based adjustment of the mA/kV was utilized to reduce the radiation dose to as low as reasonably achievable. INDICATION: 79-year-old man with abdominal pain, nausea, vomiting, and diarrhea. COMPARISON: None. FINDINGS: Suboptimal evaluation secondary to motion artifact. LOWER THORAX: Groundglass opacities in both lung bases, likely atelectasis. HEPATOBILIARY: Subcentimeter hypodensity in segment 7 of the liver is too small to characterize, but is likely a benign entity. Gallbladder is unremarkable. No biliary ductal dilatation. SPLEEN: No splenomegaly. PANCREAS: No focal masses or ductal dilatation. ADRENALS: No adrenal nodules. KIDNEYS/URETERS: No hydronephrosis or calculi. 1.5 x 1.4 cm cyst in the right interpolar region. PELVIC ORGANS/BLADDER: Bladder is under distended. Nonspecific prostatic calcifications. PERITONEUM/RETROPERITONEUM: No free air or fluid. LYMPH NODES: No lymphadenopathy. VESSELS: Atherosclerotic calcifications in the abdominal aorta and bilateral iliac arteries without aneurysm. GI TRACT: No distention or wall thickening. Normal appendix. Small sliding hiatal hernia. Small periampullary duodenal diverticulum. BONES AND SOFT TISSUES: Degenerative changes of the visualized spine, most prominent at L4-L5. 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 Elevated right hemidiaphragm. IMPRESSION: Suboptimal evaluation secondary to motion artifact. No definite acute abnormalities in the abdomen or pelvis. Signed by: Aleyda Carter MD on 04/28/2020 10:00 AM Diagnostics Tests Diagnostic test(s) reviewed: Yes Procedures 12 Lead ECG Interpretation ECG Interpretation : Atm Technician: Interpreted by ED physician Date: Apr 28, 2020 Time: 07:33 Rhythm: sinus tachycardia Ectopy: PVC's Rate: tachycardia (119) QRS axis: normal ST segments normal: No (NON-SPECIFIC) T waves normal: No (NON-SPECIFIC) Clinical Impression: non-specific ECG Assessment & Plan Medical Decision Making MDM PT PRESENTS WITH N/V/D, TACHYCARDIA, MILD HYPOXIA (94% ON RA), WEAKNESS, FEVER PER EMS - CHECK CBC, CHEM, CARDIAC ENZYMES, ECG, UA, BLOOD/URINE CX, COVID19, CT ABD/PELVIS, CXR , LACTIC ACID - R/O SEPSIS, COVID19, STEMI/NSTEMI, SBO, COLITIS, GASTROENTERITIS, PNEUMONIA Reassessment Reassessment POSSIBLE SEPSIS: A) SOURCE OF INFECTION = POSSIBLY GI SOURCE (ON ARRIVAL) B) SIRS CRITERIA - WBC>12K, HR>90, RESP>20 CX'S DRAWN, INITIAL LACTIC 1.6, BROAD SPECTRUM ABX'S ORDERED - ZOSYN C) NO ORGAN DYSFUNCTION CRITERIA SO NOT SEVERE SEPSIS I SPOKE WITH DR JONES FOR ADMISSION - WILL PLACE IN COVID UNIT UNTIL COVID SWAB RESULTS ARE BACK, ALSO SPOKE WITH DR Juany HICKEY AND EMILY Assessment & Plan Final Impression: (1) Diarrhea (2) Sepsis (3) Viral syndrome (4) Pneumonia due to COVID-19 virus Depart Disposition: ADMITTED Last Vital Signs Date Time Temp Pulse Resp B/P (MAP) Pulse Ox O2 Delivery O2 Flow Rate FiO2 04/28/20 07:53 121 27 151/97 98 04/28/20 07:16 100.2 Medications in the ED Pantoprazole Sodium 40 mg ONCE STAT IV Last administered on 04/28/20at 08:07; Admin Dose 40 MG; Start 04/28/20 at 07:22; Stop 04/28/20 at 07:43; Status DC Ondansetron HCl 4 mg ONCE STAT IV Last administered on 04/28/20at 08:07; Admin Dose 4 MG; Start 04/28/20 at 07:22; Stop 04/28/20 at 07:43; Status DC Sodium Chloride 1,000 ml @ 0 mls/hr Q0M STAT IV Last administered on 04/28/20at 08:06; Admin Dose 999 MLS/HR; Start 04/28/20 at 07:22; Stop 04/28/20 at 07:25; Status DC Sodium Chloride 1,000 ml @ 0 mls/hr Q0M STAT IV Last administered on 04/28/20at 08:06; Admin Dose 999 MLS/HR; Start 04/28/20 at 07:44; Stop 04/28/20 at 07:45; Status DC Sodium Chloride 1,000 ml @ ud STK-MED ONCE .ROUTE ; Start 04/28/20 at 07:51; Stop 04/28/20 at 07:46; Status DC Piperacillin Sod/ Tazobactam Sod 50 ml @ 50 mls/hr NOW ONCE IV ; Start 04/28/20 at 08:15; Stop 04/28/20 at 09:14 OTTO RASCON MD Apr 28, 2020 09:12
[2020-04-28] MEDS ORDERED: AZITHROMYCIN 500MG/NS 250 ML 250 ML IV SCH (10:00)
--- NOTE | 2020-04-28 10:03 | Diagnostic Imaging Report ---
TECHNIQUE: CT of the abdomen and pelvis WITH intravenous contrast and WITHOUT oral contrast. Dose modulation, iterative reconstruction, and/or weight-based adjustment of the mA/kV was utilized to reduce the radiation dose to as low as reasonably achievable. INDICATION: 79-year-old man with abdominal pain, nausea, vomiting, and diarrhea. COMPARISON: None. FINDINGS: Suboptimal evaluation secondary to motion artifact. LOWER THORAX: Groundglass opacities in both lung bases, likely atelectasis. HEPATOBILIARY: Subcentimeter hypodensity in segment 7 of the liver is too small to characterize, but is likely a benign entity. Gallbladder is unremarkable. No biliary ductal dilatation. SPLEEN: No splenomegaly. PANCREAS: No focal masses or ductal dilatation. ADRENALS: No adrenal nodules. KIDNEYS/URETERS: No hydronephrosis or calculi. 1.5 x 1.4 cm cyst in the right interpolar region. PELVIC ORGANS/BLADDER: Bladder is under distended. Nonspecific prostatic calcifications. PERITONEUM/RETROPERITONEUM: No free air or fluid. LYMPH NODES: No lymphadenopathy. VESSELS: Atherosclerotic calcifications in the abdominal aorta and bilateral iliac arteries without aneurysm. GI TRACT: No distention or wall thickening. Normal appendix. Small sliding hiatal hernia. Small periampullary duodenal diverticulum. BONES AND SOFT TISSUES: Degenerative changes of the visualized spine, most prominent at L4-L5. 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 Elevated right hemidiaphragm. IMPRESSION: Suboptimal evaluation secondary to motion artifact. No definite acute abnormalities in the abdomen or pelvis. Signed by: Aleyda Carter MD on 04/28/2020 10:00 AM
[2020-04-28 10:10] LABS: BILIRUBIN,URINE NEGATIVE (NEGATIVE); CLARITY,URINE CLOUDY (CLEAR); COLOR,URINE YELLOW (YELLOW); KETONES,URINE NEGATIVE (NEGATIVE); LEUKOCYTE ESTERASE ,URINE NEGATIVE (NEGATIVE); NITRITE,URINE NEGATIVE (NEGATIVE); PROTEIN,URINE DIPSTICK 1+ (NEGATIVE); URINE UROBILINOGEN 0.2 mg/dL (0.2 - 1)
[2020-04-28] MEDS ORDERED: SODIUM CHLORIDE 0.9% 1000ML 1,000 ML IV SCH (10:30)
[2020-04-28] MEDS ORDERED: SODIUM CHLORIDE 0.9% 50ML 50 ML ONE (10:31)
[2020-04-28] MEDS ORDERED: IOPAMIDOL 370 MG/ML 200 ML INFUS..BTL INJ ONE (10:32)
[2020-04-28 10:35] LABS: CALCIUM OXALATE CRYSTALS,UR RARE (FEW); EPITHELIAL CELLS,URINE FEW /LPF; RBC,URINE 0-5 /HPF (0-5)
[2020-04-28 10:40] LABS: AMORPHOUS SEDIMENT,URINE MANY (FEW)
[2020-04-28] MEDS ORDERED: ONDANSETRON HCL INJ 2MG/ML 2ML 2 MG/ML VIAL IV PRN (10:45)
[2020-04-28 10:57] LABS: URIC ACID CRYSTALS,URINE FEW (FEW)
[2020-04-28 10:58] LABS: BACTERIA,URINE RARE /HPF
[2020-04-28] MEDS ORDERED: ACETAMINOPHEN 325 MG TAB PO PRN (11:00)
[2020-04-28] MEDS ORDERED: ACETAMINOPHEN 325 MG TAB PO ONE (11:00)
--- OUTSIDE RECORDS SUMMARY | 2020-04-28 11:00 | XMS REPORT | Continuity of Care Document ---
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 05/14/2018 [facility] [place] Spine lumbar 2 or 3 views DX [...] to evaluate for pars defects. 05/14/2018 [facility] [place] Brain wo contrast CT I have re [...] MRI of brain as clinically indicated. SL: [id number] 04/12/2018 [facility] [place] Spine cervical 2 or 3 view DX [...] subluxation in the visualized portion of C-spine. [id number] degenerative changes, as discussed above. Limited evaluation [...] by the radiologist at that time. SL: [id number] 04/12/2018 [facility] [place] Consultation Notes No Data Provided for This Section Discharge Summaries No Data Provided for This Section History and Physicals No Data Provided for This Section Vital Signs No Data Provided for This Section Encounters Location Location Details Encounter Type Encounter Number Reason For Visit Attending Provider ADM Date DC Date Status Source OD [id number] 490 - BRONCHITIS NOS DAVEY KRISHNAMURTHY 10/25/2011 Active [facility] [place] [facility] [place] [facility] [id number] 01 Davey Krishnamurthy 04/12/2018 04/13/2018 [facility] [place] [facility] [id number] Davey Krishnamurthy 05/14/2018 05/15/2018 [facility] [place] Procedures No Data Provided for This Section Assessment and Plan No Data Provided for This Section Plan of Care No Data Provided for This Section Social History Social History Date Source No data available for this section 05/15/2018 [facility] [place] No data available for this section 04/13/2018 [facility] [place] Family History No Data Provided for This Section Advance Directives No Data Provided for This Section Functional Status No Data Provided for This Section
--- OUTSIDE RECORDS SUMMARY | 2020-04-28 11:00 | XMS REPORT | Continuity of Care Document ---
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 [facility] [place] Diagnosis Active 2018-05-14 00:01:00 2018-05-14 14:37:00 Gustabo French 490 - BRONCHITIS NOS 490 - BRONCHITIS NOS Active 10/25/2011 [facility] [place] Diagnosis Active 2011-10-25 00:01:00 2011-10-25 10:47:00 [facility] [place] History of hypertension History of hypertension Problem Resolved [facility] Hearing loss Hearing loss Problem Active [facility] Hypothyroidism Hypothyroidism Problem Active [facility] Mixed hyperlipidemia Mixed hyperlipidemia Problem Active [facility] Morbid obesity Morbid obesity Problem Active [facility] Allergies, Adverse Reactions, Alerts Allergy Name Allergy Type Status Severity Reaction(s) Onset Date Inacti ve Date Treating Clinician Comments Source No Known Allergies DA Active U 2015-05-27 00:00:00 [facility] Family History Family Member Diagnosis Comments Start Date Stop Date Source natural daughter Family history of intellectual disability [facility] Mother Family history of malignant neoplasm of colon [facility] Social History Social Habit Start Date Stop Date Quantity Comments Source Social History 2018-04-13 04:59:00 2018-04-13 04:59:00 [facility] Smoking Status Start Date Stop Date Source [facility] smoked tobacco (finding[facility] Medications Ordered Medication Name Filled Medication Name Start Date Stop Da te Current Medication? Ordering Clinician Indication Dosage Frequency Signature (SIG) Comments Components Source Pravastatin Sodium 20 MG Oral Tablet Pravastatin Sodium 20 M G Oral Tablet 2019-11-06 00:00:00 Yes 1 QD TAKE 1 TABLET DOROTHY Y. [facility] Levothyroxine Sodium 50 MCG Oral Tablet Levothyroxine Sodium 50 MCG Oral Tablet 2019-11-06 00:00:00 Yes 1 QD TAKE 1 TABLET DOROTHY Y. [facility] Losartan Potassium 100 MG Oral Tablet Losartan Potassium 100 MG Oral Tablet 2019-11-06 00:00:00 Yes 1 QD TAKE 1 TABLET DOROTHY Y. [facility] Tamsulosin HCl - 0.4 MG Oral Capsule Tamsulosin HCl - 0.4 MG Oral Capsule 2019-11-06 00:00:00 Yes 1 QD TAKE 1 CAPSULE BELTRAN LY [facility] Immunizations Ordered Immunization Name Filled Immunization Name Date Status Comments Source Fluzone High-Dose 0.5 ML Intramuscular Suspension Prefilled Syringe 2018-08-19 00:00:00 Completed [facility] Varicella Disease Unknown Completed [facility] Vital Signs Vital Name Observation Time Observation Value Comments Source Height 2020-01-01 12:50:00 67.5 [in_us] [facility] Weight 2020-01-01 12:50:00 277.6 [lb_av] [facility] Body Mass Index Calculated 2020-01-01 12:50:00 42.84 kg/m2 [facility] BP Systolic 2019-11-06 13:12:00 117 mm[Hg] Location: SHADI Andrews on: Sitting [facility] BP Diastolic 2019-11-06 13:12:00 76 mm[Hg] Location: SHADI Andrews on: Sitting [facility] Weight 2019-11-06 13:12:00 269 [lb_av] [facility] Height 2019-11-06 13:12:00 67.5 [in_us] [facility] Body Mass Index Calculated 2019-11-06 13:12:00 41.51 kg/m2 [facility] Temperature 2019-11-06 13:12:00 97.2 [degF] Method: Temporal [facility] Respiration Rate 2019-11-06 13:12:00 81 /min [facility] Heart Rate 2019-11-06 13:12:00 81 /min [facility] Procedures Procedure Date / Time Performed Performing Clinician Sourc e [QH] LIPID PANEL WITH REFLEX TO DIRECT LDL 2019-11-06 00:00:00 [facility] [[facility]] CBC (INCLUDES DIFF/PLT) 2019-11-06 00:00:00 [facility] [[facility]] CMP W/EGFR 2019-11-06 00:00:00 [facility] [[facility]] TSH, 3RD GENERATION W/REFLEX TO FT4 2019-11-06 00:00:00 [facility] History of Tonsillectomy [facility] Encounters Start Date/Time End Date/Time Encounter Type Admission Type Attendi [facility] Care Department Encounter ID Source 2020-01-01 11:00:00 2020-01-01 11:00:00 Appointment; MILI SALGUERO RD WRIGHT, TISH, RD [facility] Multispecialty [facility] [id number] [facility] 2019-12-04 13:00:00 2019-12-04 13:00:00 Appointment; EMA BEASLEY KIMBERLY [facility] [id number] [facility] 2019-11-06 13:00:00 2019-11-06 13:00:00 Appointment; PABLO URBAN D.O. YEH, SHAO-CHUN, D.O. [facility] Family Practice [facility] [id number] [facility] 2018-05-14 14:25:00 2018-05-14 23:59:00 Outpatient Davey Lyman HOIP HOIP [id number] 2018-04-12 08:03:00 2018-04-12 23:59:00 Outpatient Davey Lyman MHOIP MHOIP [id number] 2018-04-07 16:30:00 2018-04-07 18:07:[address] [facility] [id number] [facility] Results Test Description Test Time Test Comments Results Result Comments Source CT ABDOMEN/PELVIS W 2020-04-28 09:40:00 [facility] [address] [place], [place] [address] Patient Name: ZOË RENTERIA MR #: [id number] : 1940 Age/Sex: 79/M Req #: [id number] Adm Physician: Ordered by: OTTO RASCON MD Report #: [id number] Location: ER Room/Bed: Procedure: [id number] CT/CT ABDOMEN/PELVIS W Exam Date: 04/28/20 Exam Time: 0858 REPORT STATUS: Signed TECHNIQUE: CT of the abdomen and pelvis WITH intravenous contrast and WITHOUT oral contrast. Dose modulation, iterative reconstruction, and/or weight-based adjustment of the mA/kV was utilized to reduce the radiation dose to as low as reasonably achievable. INDICATION: 79-year-old man with abdominal pain, nausea, vomiting, and diarrhea. COMPARISON: None. FINDINGS: Suboptimal evaluation secondary to motion artifact. LOWER THORAX: Groundglass opacities in both lung bases, likely atelectasis. HEPATOBILIARY: Subcentimeter hypodensity in segment 7 of the liver is too small to characterize, but is likely a benign entity. Gallbladder is unremarkable. No biliary ductal dilatation. SPLEEN: No splenomegaly. PANCREAS: No focal masses or ductal dilatation. ADRENALS: No adrenal nodules. KIDNEYS/URETERS: No hydronephrosis or calculi. 1.5 x 1.4 cm cyst in the right interpolar region. PELVIC ORGANS/BLADDER: Bladder is under distended. Nonspecific prostatic calcifications. PERITONEUM/RETROPERITONEUM: No free air or fluid. LYMPH NODES: No lymphadenopathy. VESSELS: Atherosclerotic calcifications in the abdominal aorta and bilateral iliac arteries without aneurysm. GI TRACT: No distention or wall thickening. Normal appendix. Small sliding hiatal hernia. Small periampullary duodenal diverticulum. BONES AND SOFT TISSUES: Degenerative changes of the visualized spine, most prominent at L4-L5. 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 Elevated right hemidiaphragm. IMPRESSION: Suboptimal evaluation secondary to motion artifact. No definite acute abnormalities in the abdomen or pelvis. Signed by: Mellissa Carter MD on 04/28/2020 10:00 AM Dictated By: MELLISSA CARTER MD 1000 Transcribed By: NORA on 04/28/20 1000 COPY TO: OTTO RASCON MD CHEST SINGLE (PORTABLE) 2020-04-28 08:54:00 [place] [address] Patient Name: ZOË RENTERIA MR #: [id number] : 1940 Age/Sex: 79/M Req #: [id number] Adm Physician: Ordered by: OTTO RASCON MD Report #: [id number] Location: ER Room/Bed: Procedure: [id number] DX/CHEST SINGLE (PORTABLE) Exam Date: 04/28/20 Exam Time: 819 REPORT STATUS: Signed EXAMINATION: CHEST SINGLE (PORTABLE) INDICATION: Nausea, fever COMPARISON: None FINDINGS: LINES/TUBES:EKG leads overlie the chest. LUNGS:The lungs are moderately inflated. Mild bibasilar patchy opacities left greater than right. PLEURA:No pleural effusion or pneumothorax. MEDIASTINUM:The cardiomediastinal silhouette appears normal in size and shape. BONES/SOFT TISSUES:No acute osseous injury. ABDOMEN:No free air under the diaphragm. IMPRESSION: Mild left greater than right bibasilar patchy opacities, more likely subsegmental atelectasis than superimposed aspiration or pneumonia. Signed by: Berta Kinney MD on 04/28/2020 8:56 AM Dictated By: BERTA KINNEY MD 5 Transcribed By: NORA on 04/28/20855 COPY TO: OTTO RASCON MD [[facility]] CMP W/EGFR 2019-11-06 15:20:00 Test Item Glucose; Above High Threshold (test code = 2345-7) 125 mg/dL 65- 99 BUN (test code = 3094-0) 13 mg/dL 8-27 Creatinine (test code = 2160-0) 0.97 mg/dL 0.76-1.27 eGFR If NonAfricn Am (test code = 05273-7) 75 mL/min/1.7 >59 eGFR If Africn Am (test code = 67326-4) 87 mL/min/1.7 >59 BUN/Creatinine Ratio (test code = 3097-3) 13 10-24 Sodium, Serum (test code = 2951-2) 140 mmol/L 134-144 Potassium (test code = 2823-3) 4.5 mmol/L 3.5-5.2 Chloride (test code = 2075-0) 99 mmol/L 96-106 Carbon Dioxide, Total (test code = 2027-9) 24 mmol/L 20-29 Calcium, Serum (test code = 84375-0) 9.4 mg/dL 8.6-10.2 Protein, Total (test code = 2885-2) 7.4 g/dL 6.0-8.5 Albumin; Above High Threshold (test code = 1751-7) 5.0 g/dL 3.5 -4.8 Globalulin, Total (test code = 24593-5) 2.4 g/dL 1.5-4.5 A/G Ratio (test code = 1759-0) 2.1 1.2-2.2 Bilirubin, Total (test code = 1975-2) 0.8 mg/dL 0.0-1.2 Alkaline Phosphatase (test code = 6768-6) 52 {IU/L} 39-117 AST (SGOT) (test code = 1920-8) 23 {IU/L} 0-40 ALT (SGPT) (test code = 1742-6) 25 {IU/L} 0-44 [facility]] CBC (INCLUDES DIFF/PLT)2019-11-06 15:20:00* Test Item [...] {x10E3/uL} 0.0-0.2 Immature Granulocytes (test code = 52381-9) 0 % Not Estab. Immature Grans (Abs) (test code = 87474-0) 0.0 {x10E3/uL} 0.0-0.1 NRBC (test code = 80562-9) See Comment Hematology Comments: (test code = 30225-9) See Comment [facility][L] [id number] 15:20:00* Test Item Value Reference Range Interpretation Comments Cholesterol, Total; Above High Threshold (test code = 2093-3) 20 8 mg/dL 100-199 Triglycerides; Above High Threshold (test code = 2571-8) 241 mg/dL 0-149 HDL Cholesterol; Below Low Threshold (test code = 2085-9) 39 mg/dL >39 VLDL Cholesterol Juan J; Above High Threshold (test code = 68169-3) 48 mg/dL 5-40 LDL Cholesterol Calc; Above High Threshold (test code = 82798-2) 121 mg/dL 0-99 Comment: (test code = Comment:) See Comment [facility]] TSH, 3RD [id number] 15:20:00* Test Item Value Reference Range Interpretation Comments TSH (test code = 87581-1) 2.890 {uIU/mL} 0.450-4.500 [facility]iciansCOLOSteffi [id number] 16:37:00 RUN DATE: 10/10/19 [place] - Lab PAGE 1 RUN TIME: 1637 Specimen Inqui ry RUN USER: INTERFACE PATIENT: ZOË RENTERIA ACCT #: [id number] LOC: [facility] U #: [id number] AGE/SX: 79/M ROOM: RE10/09/19[facility] DR: Jaguar Fajardo MD : 42 BED: DIS: STATUS: [facility] [place]: SPEC #: [id number] RECD: 10/09/19 STATUS: RUSLAN ORDOÑEZPing #: [id number] MISTI: 10/09/19 [facility] DR: Jaguar Fajardo MD ENTERED: 10/09/19 SP TYPE: COLONBX OTHR DR: Davey Lyman MD ORDERED: GROSS COPIES TO: Jaguar Fajardo MD [address] 1957 [address] [address] Davey Lyman MD [address] [place] [address] PROCEDURES: GROSS (10/10/19-1211) TISSU ES: TRANSVERSE COLON - POLYP HOT SNARE CLINICAL HISTORY COL LECTION DATE: 10/09/19 COLON SCREENING HISTORY OF POLYPS FINAL PORTER GNOSIS Transverse colon polyps, polypectomy: TUBULAR ADENOMA (1) HYPERPLASTIC POLYPS (MULTIPLE FRAGMENTS) NEGATIVE FOR HIGH GRADE DYSPLA MYNOR OR MALIGNANCY DMW/sm D 66100 MACROSCOPIC The spec lenora is received in formalin, labeled with the patient's name, and identified as "transverse colon polyps", and consists of multiple valladares biopsy fragments ra nging from 0.2 to the largest piece that measures 0.6 cm. The larger polyp is inked and trisected. The specimen is entirely submitted in a single cassette . CONTINUED ON NEXT PAGE TRI N DATE: 10/10/19 [facility] - [facility] PAGE 2 RUN TIME: 1637 Specimen Inquiry RUN USER: INTERFACE SPEC #: [id number] PATIENT: ZOË RENTERIA #[id number] (Continued) MACROSCOPIC (Co ntinued) GROSS PERFORMED AT [facility] [address] [facility] [address] (P) MICROSCOPIC All of the stains, including any controls performed, stain appropriately. MICROSCOPIC PERFORMED AT [facility] [address] [place] [address] (M) PERFORMING SITE Diagnosis performed at: [facility] [address] [place] [address] Signed SIG NATURE ON FILE Khurram Fisher MD 10/10/19 1637 ------- ----- END OF REPORT BASIC METABOLIC [id number] 13:48:00* Test Item Value Reference Range Interpretation [...] CA) 8.7 mg/dL 8.5-10.1 N CBC W/AUTO [id number] 12:59:00* Test Item Value Reference Range Interpretation [...] code = BA#) K/mm3 0.0-0.2 CBC W/AUTO [id number] 12:59:00* Test Item Value Reference Range Interpretation [...]
[2020-04-28] MEDS ORDERED: IBUPROFEN 800MG/ 200ML 200 ML IV ONE (11:15)
[2020-04-28 11:30] LABS: OCCULT BLOOD STOOL POSITIVE (NEGATIVE)
[2020-04-28] MEDS: METRONIDAZOLE 500MG/NS 100ML 100 ML IV SCH ×2 (12:46→19:46)
[2020-04-28 12:49] LABS: C DIFFICILE TOXIN A&B AMP PROB NEGATIVE (NEGATIVE)
[2020-04-28] MEDS: DEXTROSE 5%/LACTATED RINGERS 1,000 ML IV SCH ×2 (13:45→22:00)
--- NOTE | 2020-04-28 14:44 | Consultation ---
DATE OF CONSULTATION: Pulmonary Critical Care Consultation CHIEF COMPLAINT: Diarrhea and pulmonary infiltrates. HISTORY OF PRESENT ILLNESS: The patient is a 79-year-old man. He states that he ate some [place] food. He subsequently developed diarrhea and has had severe diarrhea for the past 24 hours. He reports some fever. He does not complain of cough. He has some mild dyspnea. PAST SURGICAL HISTORY: The patient denies any prior abdominal surgeries. PAST MEDICAL HISTORY: 1. No prior cardiac history. 2. No known asthma or COPD. SOCIAL HISTORY: The patient is not a smoker or drinker. ALLERGIES: NO KNOWN DRUG ALLERGIES. FAMILY HISTORY: Family history is noncontributory. REVIEW OF SYSTEMS: The patient is afebrile. There is no headache. The patient is not having any neck pain. He has no chest pain. He has mild cough. He is not having any dyspnea. He has no abdominal pain. He has some diarrhea. PHYSICAL EXAMINATION: VITAL SIGNS: The patient is febrile to 102.9. The pulse is 122. The blood pressure is 107/77. HEENT: Shows no facial swelling or erythema. CARDIAC: Reveals regular rate and rhythm with normal S1 and S2. LUNGS: Auscultation of lungs reveals crackles at the bases. There is no wheezing. ABDOMEN: Soft and nontender. There is no rebound or guarding. EXTREMITIES: Shows no leg edema or calf tenderness. There is no cyanosis or clubbing. SKIN: Shows no rashes. NEUROLOGICAL: Shows no focal abnormalities. LABORATORY DATA: Carbon dioxide is 21 and BUN to creatinine ratio is 18 to 1.09. The glucose is 145. RADIOGRAPHIC DATA: CT scan of the abdomen and pelvis shows no acute abnormalities in the abdomen or pelvis. There is some possible bibasilar atelectasis or infiltrates. Chest x-ray shows possible bibasilar patchy opacities. IMPRESSION: 1. Acute gastroenteritis, possibly related to food poisoning. 2. Possible aspiration pneumonitis. 3. Aspiration pneumonia. 4. Acute kidney injury. 5. Metabolic acidosis. PLAN: 1. IV fluids. 2. Antibiotics. 3. Await culture results. 4. Speech therapy evaluation. 5. COVID-19 testing. Manny Chahal MD [facility]/MODL /[id number]
[2020-04-28] MEDS ORDERED: PIPER-TAZ 3.375 GM 50 ML IV SCH (15:00)
[2020-04-28 16:00] VITALS: BP 115/72
--- NOTE | 2020-04-28 16:48 | NUR ---
consult [id number]
[2020-04-28 18:41] VITALS: BP 115/72
[2020-04-28 18:54] VITALS: BP 115/72
[2020-04-28 20:15] VITALS: BP 120/84
[2020-04-28] MEDS: CEFTRIAXONE SOD 2 GM/NS 100 ML 100 ML IV SCH (20:15)
[2020-04-28 20:27] LABS: CREATINE KINASE MB 3.2 ng/mL (0-5.0)
--- NOTE | 2020-04-28 21:12 | NUR ---
Received report from IMCU nurse. Patient going into room 288.
--- NOTE | 2020-04-28 22:00 | NUR ---
Patient received from [facility] via stretcher. AAO x 3. Patient had no complaints of pain. Respirations even and non-labored on 3L NC. Safety measures in place. Patient instructed to call for assistance when needed. Call light within reach.
[2020-04-29] VITALS: BP 123/71
[2020-04-29] MEDS: METRONIDAZOLE 500MG/NS 100ML 100 ML IV SCH ×4 (00:17→18:27)
--- NOTE | 2020-04-29 01:30 | NUR ---
Patient had three bouts of diarrhea. [place] (LABEL PRINTER) notified. New order received for Questran TID
[2020-04-29] MEDS: CHOLESTYRAMINE 4 GM PACKET PO SCH ×3 (02:09→21:46)
[2020-04-29 04:00] VITALS: BP 119/66
[2020-04-29] MEDS: MORPHINE SULFATE 2 MG/ML SYR 1ML IV PRN (04:39)
--- NOTE | 2020-04-29 05:00 | NUR ---
Wheezing noted with patient. Dr. Chahal notified. Nebulizer treatment ordered.
[2020-04-29] MEDS: DEXTROSE 5%/LACTATED RINGERS 1,000 ML IV SCH (06:01)
[2020-04-29 06:04] LABS: BASOPHILS % 0.3 % (0.0-1.0); EOSINOPHILS % 0.2 % (0.0-6.0); HEMATOCRIT 37.9 % (38.2-49.6); HEMOGLOBIN 12.4 g/dL (14.0-18.0); LYMPHOCYTES % 10.5 % (18.0-39.1); MEAN CORPUSCULAR HEMOGLOBIN 28.9 pg (28-32); MEAN CORPUSCULAR HGB CONC 32.7 g/dL (31-35); MEAN CORPUSCULAR VOLUME 88.3 fL (81-99); MONOCYTES # (AUTO) 1.1 (0.2-0.8); MONOCYTES % 11.7 % (4.4-11.3); NEUTROPHILS # (AUTO) 7.3 (2.1-6.9); NEUTROPHILS % 76.9 % (38.7-80.0); PLATELET COUNT 179 x10e3/uL (140-360); RED BLOOD COUNT 4.29 x10e6/uL (4.3-5.7)
[2020-04-29 06:49] LABS: ALANINE AMINOTRANSFERASE 24 IU/L (0-55); ALBUMIN 3.2 g/dL (3.5-5.0); ALKALINE PHOSPHATASE 42 IU/L (40-150); ANION GAP 13.2 mmol/L (8-16); BLOOD UREA NITROGEN 11 mg/dL (7-26); BUN/CREATININE RATIO 14 (6-25); CALCIUM 8.2 mg/dL (8.4-10.2); CARBON DIOXIDE 20 mmol/L (22-29); CHLORIDE 108 mmol/L (98-107); CHOL/HDL RATIO 4.1 (3.9-4.7); CHOLESTEROL 130 MD/DL (0-199); EST GLOMERULAR FILTRATION RATE > 60 ML/MIN (60-); GLUCOSE 120 mg/dL (74-118); HDL CHOLESTEROL 32 MG/DL (40-60); LDL CHOLESTEROL 74 MG/DL (60-130); POTASSIUM 4.2 mmol/L (3.5-5.1); SODIUM 137 mmol/L (136-145); TRIGLYCERIDES 120 MG/DL (0-149)
[2020-04-29] MEDS: ALBUTEROL SULF 0.083% NEB SOLN 3 ML NEB NEB SCH ×3 (06:58→21:25)
--- NOTE | 2020-04-29 06:58 | NUR ---
Patient resting comfortably. Bed-side report given to oncoming nurse.
--- NOTE | 2020-04-29 07:15 | Diagnostic Imaging Report ---
EXAMINATION: CHEST SINGLE (PORTABLE) INDICATION: ^basilar infiltrates ^[id number] ^0630 COMPARISON: 04/28/2020 FINDINGS: AP view TUBES and LINES: None. LUNGS: Lungs are well inflated. Again seen bilateral perihilar airspace opacities. PLEURA: No pleural effusion or pneumothorax. HEART AND MEDIASTINUM: The cardiomediastinal silhouette is enlarged on this AP view. BONES AND SOFT TISSUES: No acute osseous lesion. Elevated right hemidiaphragm. UPPER ABDOMEN: No free air under the diaphragm. IMPRESSION: No significantly changed bilateral perihilar airspace opacities, representing edema and/or pneumonia. Signed by: Dr. Phillip Romo MD on 04/29/2020 7:12 AM
--- NOTE | 2020-04-29 07:15 | NUR ---
pt just finishing with breathing treatment. wheezing noted
[2020-04-29 08:17] VITALS: BP 111/63
--- NOTE | 2020-04-29 09:01 | Consultation ---
DATE OF CONSULTATION: 04/28/2020 REASON FOR CONSULTATION: Diarrhea, fever, chills, leukocytosis. HISTORY OF PRESENT ILLNESS: This patient, who is a very pleasant 79-year-old white male, who has history of obesity, comes in with one-day history of diarrhea, started yesterday. He went to [place] place and he ate something that did not taste good. He did not even finish his food. In the evening, he started to have diarrhea and abdominal discomfort. He has so much diarrhea that he was really weak. He had come to the hospital. He felt some fevers. He came here, started on antibiotic and IV fluid. Discussed with the ER physician. Please see orders in the chart. He is currently feeling much better. His blood cultures were ordered. Urine culture was ordered. PAST MEDICAL HISTORY: Obesity. PAST SURGICAL HISTORY: Denies. ALLERGIES: NKA. SOCIAL HISTORY: There is no smoking, drug abuse, or alcohol abuse. FAMILY HISTORY: Otherwise unremarkable. LABORATORY DATA: His white count is 16.4 and hemoglobin 14.4. His COVID-19 was negative. His C. difficile was negative. His white count is 16.4. PHYSICAL EXAMINATION: GENERAL: He is currently alert and oriented. Does not seem to be in acute distress. VITAL SIGNS: Stable, currently afebrile. HEENT: He is not icteric. NECK: Supple. CHEST: Clear bilateral. HEART: S1 and S2. ABDOMEN: Soft. Bowel sounds present. No tenderness. EXTREMITIES: No edema. SKIN: There is no rash. IMPRESSION: I think the patient have gastroenteritis. We will give him Flagyl. We will add cefepime. Discontinue Zosyn. Discontinue azithromycin. Recheck CBC. Recheck chem panel. Agree with IV fluids due to the patient is also dehydrated. Can move to medical floor. MD TERESITA Vo/JERMAINE /[id number]
--- NOTE | 2020-04-29 10:00 | NUR ---
speech therapy is in with pt at this time
--- NOTE | 2020-04-29 11:47 | Progress Note ---
DATE: SUBJECTIVE: The patient is seen and evaluated. Available labs and notes reviewed. Discussed with Dr. Kapoor. Discussed with speech pathologist, who is in the room and trying to get swallow test. REVIEW OF SYSTEMS: The patient is still complaining of diarrhea. Apparently had 4 bowel movements since 10 o'clock last night since he moved into this room. No fever, chills, nausea, or vomiting. Also had some swallowing issues that he is going to have swallow test. PHYSICAL EXAMINATION: VITAL SIGNS: Temperature is 97.8, improved from 102.9 last night at 11:47, pulse 99, respiration 18, and blood pressure 111/63. GENERAL: Alert and oriented, no acute distress. CV: S1 and S2. CHEST: Equal expansion. Clear to auscultation. No acute distress with decreased breath sounds. ABDOMEN: Soft and nontender. No distention. The patient is obese. HEENT: Moist. No pallor. No JVD. EXTREMITIES: Moves all. No acute finding. MEDICATIONS: Medication list reviewed and from ID point of view, the patient is on Rocephin and Flagyl. LABORATORY STUDIES: White count of 9.47, hemoglobin 12.4, and platelet 179. Sodium 137, potassium 4.2, and creatinine 0.8. Clostridium difficile 04/28, negative. Coronavirus PCR 04/28, x2 not detected. IMAGING: Chest x-ray from today showed no significantly changed bilateral perihilar airspace opacity representing edema and/or pneumonia. Had a CT of abdomen and pelvis yesterday, which showed suboptimal evaluation secondary to motion artifact. No definite acute abnormalities in abdomen or the pelvis. ASSESSMENT AND PLAN: 1. Possible gastroenteritis. 2. Dysphagia. 3. Obesity. 4. Diarrhea. 5. Overall, clinically feels better. Fever resolved. Continue with Rocephin and Flagyl at this point. Monitor the patient clinically and follow with the labs. The patient may get MBS as requested by speech pathologist. Please refer to chart for more information. Dictated by Lavon Galvin PA-C (Al) César Kapoor MD /MODL /[id number]
[2020-04-29 12:00] VITALS: BP 158/70
[2020-04-29 12:57] LABS: BAND NEUTROPHILS % (MANUAL) 11 %; LYMPHOCYTES % (MANUAL) 12 % (19-48); MONOCYTES % (MANUAL) 10 % (3.4-9.0); NEUTROPHILS % (MANUAL) 67 % (40-74); PLATELET ESTIMATE ADEQUATE; PLATELET MORPHOLOGY COMMENT NORMAL; RBC MORPHOLOGY COMMENT NORMAL
[2020-04-29] MEDS ORDERED: METHYLPREDNISOLONE SOD SUCC 125 MG/2ML VIAL IV SCH (13:00)
--- NOTE | 2020-04-29 13:43 | Progress Note ---
DATE: SUBJECTIVE: The patient had some difficulty breathing this morning. He had to be placed on BiPAP and he felt better. PHYSICAL EXAMINATION: VITAL SIGNS: The blood pressure is 111/63 and saturation is 95% on 3 L. Pulse is 99. HEENT: Shows no facial swelling or erythema. CARDIAC: Reveals regular rate and rhythm with normal S1 and S2. LUNGS: Auscultation of lungs reveals clear breath sounds bilaterally. There is no wheezing. ABDOMEN: Soft and nontender. There is no rebound or guarding. EXTREMITIES: Shows no leg edema or calf tenderness. There is no cyanosis or clubbing. SKIN: Shows no rashes. NEUROLOGICAL: Shows no focal abnormalities. LABORATORY DATA: BUN to creatinine ratio is normal. The carbon dioxide is 20 and the chloride is 108. The glucose is 120. Albumin is 3.2. White blood cell count is 9.4 and the hemoglobin is 12.4. The platelet count is 179. IMPRESSION: 1. Infectious diarrhea and gastroenteritis. 2. Dyspnea of unclear etiology. 3. Acute kidney injury. 4. Metabolic acidosis. PLAN: 1. Continue current antibiotics. 2. Continue BiPAP. 3. Cardiology evaluation and echocardiogram. 4. Transfer to [facility]. Manny Chahal MD [facility]/JERMAINE /[id number]
--- NOTE | 2020-04-29 14:25 | NUR ---
PT GOT IN RESP DISTRESS EARILER AND BOTH Perico CARDONA AND DR HICKEY AT BEDSIDE. PT GIVEN SOLUMEDROL 125MG IVP. PT TRANSFERRED TO [facility]. REPORT GIVEN TO Chelsie SANTOS RN.
[2020-04-29 16:00] VITALS: BP 124/69
[2020-04-29] MEDS ORDERED: MAGNESIUM SULFATE 2GM/50ML 50 ML IV ONE (16:30)
[2020-04-29] MEDS ORDERED: SODIUM CHLORIDE 0.9% 250ML 250 ML ONE (18:13)
[2020-04-29 19:30] VITALS: BP 129/107
[2020-04-29] MEDS ORDERED: FUROSEMIDE INJ 10 MG/ML 4 ML VIAL IV ONE (20:15)
--- NOTE | 2020-04-29 21:50 | History and Physical ---
CONSULTING PHYSICIANS: 1. Dr. Manny Chahal with Pulmonology/Critical Care Medicine. 2. Dr. Kapoor with Infectious Disease. CHIEF COMPLAINT: Diarrhea. HISTORY OF PRESENT ILLNESS: The patient is a 79-year-old male admitted with complaints of diarrhea approximately 25 times in the past few days. According to the emergency department documentation, he felt weak and went to the floor with diarrhea, which started on 04/27/2020 without any blood noted. He had a fever of 101.0 on the scene, stated that he was tachycardic on the scene and multiple episodes of watery stools, two episodes of vomiting. PAST MEDICAL HISTORY: Morbid obesity. He hit his head on April 06, 2018, with apparently no surgery required. Hypertension, hypothyroidism, hyperlipidemia, torn right rotator cuff, left knee arthritis, urinary frequency due to BPH, myocardial infarction. PAST SURGICAL HISTORY: Tonsillectomy and adenoidectomy. FAMILY HISTORY: Father asbestosis. SOCIAL HISTORY: Denies any previous history of tobacco, alcohol, or illicit drug use. He lives with his daughter. 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 Apparently, ambulates without use of cane or assistive device. ALLERGIES: NO KNOWN ALLERGIES. MEDICATIONS: No home medications were listed. The patient states that he takes vitamins at home, but does not take any medications regularly. REVIEW OF SYSTEMS: CONSTITUTIONAL: Denies any weight loss or weight gain in last 6 months. He did have fever prior to arrival. No complaints regarding eyes, ears, nose, throat, respiratory. Upon initially seeing the patient on med/surg 3, he was very short of breath, saying that he breathes better lying flat. Respiratory therapist and nurse in the room asking if BiPAP should be added. Also, he was having wheezing and elevated work of breathing. GENITOURINARY: The patient states that the nurse was unable to put any urinary catheter due to the enlarged prostate. PSYCH: No previous psychiatric history. INTEGUMENTARY: Denies any problems with skin. CARDIOVASCULAR: No complaint of chest pain or palpitations. GASTROINTESTINAL: Does complain of diarrhea as per history of present illness. Last stool was about 1400 hours today. MUSCULOSKELETAL: Denies any current joint or muscle pain. NEUROLOGIC: Has pains from old head injury. ENDOCRINE: Denies history of diabetes. HEMATOLOGIC: Denies bleeding or bruising anywhere. OBJECTIVE: VITAL SIGNS: Temperature 97.8, heart rate 99, blood pressure 111/63, respirations 18, and oxygen saturation 95% earlier this morning; however, time of initial encounter heart rate was about 120, respirations 26, and pulse oximetry 83% on 3 L of oxygen via nasal cannula. The patient was immediately put on BiPAP with good results. Weight 266 pounds, BMI 41.65. GENERAL: Supine. LUNGS: Generally clear to auscultation. Now was wheezing earlier when in respiratory distress. BiPAP 10/5, rate of 12, FiO2 40%. HEENT: EOMI. NECK: Supple. CARDIOVASCULAR: Regular rate and rhythm. No murmur D5 LR infusing at 75 mL/hour into peripheral IV. ABDOMEN: Bowel sounds positive. Soft, nontender, obese. EXTREMITIES: Without pitting edema. No clubbing, cyanosis, or marked swelling. NEUROLOGICAL: GCS 15. Nonfocal. LABORATORY DATA: On admission, WBC 16.43, hemoglobin 14.1, hematocrit 42.3, platelets 211. Sodium 135, potassium 4.0, chloride 101, CO2 21, anion gap 17, BUN 18, creatinine 1.09. Estimated GFR greater than 60, glucose 145, calcium 9.4, magnesium 1.6, total bilirubin 0.8, AST 18, ALT 24, alkaline phosphatase 52. Creatine kinase 119, CK-MB 1.1, troponin I 0.03. Total protein 7.5, albumin 4.0, PT 12.7, INR 0.90, PTT 32.2. Urinalysis was cloudy, 1+ protein, trace amount of blood, no nitrites, no leukocyte esterase, wbc's was 6 to 10, many amorphous sediment, positive fecal occult blood test. Clostridium difficile toxin was negative. Coronavirus by PCR was negative x2. Blood cultures x2, no growth from one, growth detected from 2nd with final workup pending. Preliminary urine culture results showed gram-negative bacillus. Final results are pending. Giardia, ova, and parasite stool collected and pending. Initial chest x-ray showed mild left greater than right bibasilar patchy opacities, more likely subsegmental atelectasis and superimposed aspiration or pneumonia. CT of the abdomen and pelvis showed suboptimal evaluation. No definite acute abnormalities in the abdomen or pelvis. Chest x-ray today showed no significant change. Today's labs, WBC 9.47, hemoglobin 12.4, hematocrit 37.9, platelets 179. Yesterday, lactic acid 1.6. B-type natriuretic peptide 13.2, creatine kinase 241, CK-MB 3.3, troponin I 0.042. Today's creatine kinase 311, CK-MB 3, troponin I 0.040. Sodium 137, potassium 4.2, chloride 108, CO2 20, anion gap 13.2, BUN 11, creatinine 0.8, estimated GFR greater than 60, glucose 120, calcium 8.2, total bilirubin 0.5, AST 28, ALT 24, alkaline phosphatase 42. Total protein 6.3, albumin 3.2. Triglycerides 120, cholesterol 130, LDL 74, HDL 32. The patient had a 12-lead EKG that was done yesterday with a ventricular rate of 119, sinus tachycardia with premature supraventricular complexes. I see only one supraventricular complex on the 12-lead. Echocardiogram has been ordered and is pending to assess congestive heart failure. ASSESSMENT AND PLAN: 1. Acute respiratory failure requiring BiPAP, unclear etiology. Pulmonology has been consulted as following. Continued BiPAP at aforementioned settings. Wean as tolerated. The patient has been transferred to IMU. Cardiology consult has been ordered by Dr. Manny Chahal specifically Dr. Davison. 2. Diarrhea and gastroenteritis, fecal occult blood test positive. I asked Dr. Garrett with Gastroenterology to see the patient. Questran has been started. Monitor for improvement. WBC down from 16.43 to 9.47. 3. Acute kidney injury, improved. 4. Fever, resolved. 5. Metabolic acidosis, serum CO2 20, monitor. 6. Morbid obesity with BMI 41.65. Dietary restrictions. 7. Prophylaxis, IV Pepcid. H and P time spent 60 minutes. [id number]. Dictated by Xavier Cardenas NP Krystian Lawson MD HWP/MODL /[id number]
[2020-04-30] MEDS: ALBUTEROL SULF 0.083% NEB SOLN 3 ML NEB NEB SCH ×4 (02:15→21:05)
[2020-04-30] MEDS: CEFTRIAXONE SOD 2 GM/NS 100 ML 100 ML IV SCH ×2 (05:00→22:23)
[2020-04-30 06:05] LABS: BASOPHILS % 0.2 % (0.0-1.0); EOSINOPHILS # (AUTO) 0.1 (0.0-0.4); EOSINOPHILS % 0.7 % (0.0-6.0); HEMATOCRIT 37.6 % (38.2-49.6); HEMOGLOBIN 12.6 g/dL (14.0-18.0); LYMPHOCYTES # (AUTO) 1.3 (1.0-3.2); LYMPHOCYTES % 12.4 % (18.0-39.1); MEAN CORPUSCULAR HEMOGLOBIN 29.6 pg (28-32); MEAN CORPUSCULAR HGB CONC 33.5 g/dL (31-35); MEAN CORPUSCULAR VOLUME 88.5 fL (81-99); MONOCYTES # (AUTO) 1.4 (0.2-0.8); MONOCYTES % 13.7 % (4.4-11.3); NEUTROPHILS # (AUTO) 7.6 (2.1-6.9); NEUTROPHILS % 72.6 % (38.7-80.0); PLATELET COUNT 193 x10e3/uL (140-360); RED BLOOD COUNT 4.25 x10e6/uL (4.3-5.7); RED CELL DISTRIBUTION WIDTH 13.7 % (11.7-14.4)
[2020-04-30] MEDS: METRONIDAZOLE 500MG/NS 100ML 100 ML IV SCH ×4 (06:30→17:22)
[2020-04-30 06:37] LABS: ALANINE AMINOTRANSFERASE 28 IU/L (0-55); ALBUMIN 3.4 g/dL (3.5-5.0); ALKALINE PHOSPHATASE 45 IU/L (40-150); ANION GAP 15.4 mmol/L (8-16); BLOOD UREA NITROGEN 8 mg/dL (7-26); BUN/CREATININE RATIO 11 (6-25); CALCIUM 8.8 mg/dL (8.4-10.2); CARBON DIOXIDE 25 mmol/L (22-29); CHLORIDE 100 mmol/L (98-107); CREATININE, SERUM 0.76 mg/dL (0.72-1.25); EST GLOMERULAR FILTRATION RATE > 60 ML/MIN (60-); GLUCOSE 126 mg/dL (74-118); POTASSIUM 3.4 mmol/L (3.5-5.1); SODIUM 137 mmol/L (136-145)
[2020-04-30 06:57] LABS: MAGNESIUM 1.9 MG/DL (1.3-2.1); PHOSPHORUS 2.9 MG/DL (2.3-4.7)
[2020-04-30 07:17] LABS: THYROID STIMULATING HORMONE 2.238 uIU/mL (0.350-4.940)
[2020-04-30 08:07] VITALS: BP 122/97
[2020-04-30] MEDS: CHOLESTYRAMINE 4 GM PACKET PO SCH ×3 (09:03→22:23)
--- NOTE | 2020-04-30 09:57 | Consultation ---
DATE OF CONSULTATION: 04/30/2020 Cardiology Consultation REASON FOR CONSULTATION: Shortness of breath. HISTORY OF PRESENT ILLNESS: A 79-year-old man presents with nausea and diarrhea with bloody stools by fecal occult blood test. He was initiated on IV fluids. During hospitalization, he developed worsening shortness of breath requiring BiPAP therapy, discontinuation of IV fluids. With this, he has noted some improvement in his symptoms. He denies any chest discomfort. Denies any other current complaints. REVIEW OF SYSTEMS: A 12-system review negative except for as noted above. PAST MEDICAL HISTORY: The patient denies any prior known disease. SOCIAL HISTORY: Negative x3. FAMILY HISTORY: Noncontributory. PHYSICAL EXAMINATION: VITAL SIGNS: Temperature 97.1, heart rate 94, blood pressure 129/107, respiratory rate 18, O2 saturation 97%, BMI 41.6. GENERAL: In no acute distress. Alert. BiPAP in place. NECK: Supple. CHEST: Decreased breath sounds in bilateral bases. CARDIOVASCULAR: Regular rate and rhythm. Normal S1 and S2. Systolic ejection murmur. No S3 or S4. ABDOMEN: Soft. Bowel sounds increased. EXTREMITIES: Without edema. CARDIOVASCULAR MEDICATION: Reviewed. BNP within normal limits. Sodium 137, potassium 3.4, chloride 100, bicarbonate 25, BUN 8, creatinine 0.7, glucose 126. White blood cells 10.4, hemoglobin 12.6, platelets 193. INR 0.9. AST 30, ALT 28, alkaline phosphatase 45. ASSESSMENT AND PLAN: A 79-year-old man presents with: 1. Acute shortness of breath concerning for acute heart failure in the setting of IV fluids or acute gastroenteritis. 2. Positive fecal occult blood test/GI bleeding. RECOMMEND: 1. Status post IV Lasix x1 overnight. Continue to monitor volume status and wean off BiPAP as tolerated. 2. Echocardiogram ordered and pending. 3. Consider follow up chest x-ray. 4. Monitor H and H closely. Thank you for the opportunity to participate in the care of Mr. Marlow. We will follow with you. Flavio Bush MD AFV/MODL /[id number]
--- NOTE | 2020-04-30 11:02 | Progress Note ---
DATE: SUBJECTIVE: The patient feels better. He has less dyspnea. He is off BiPAP. He was seen by Cardiology yesterday and received some IV Lasix. OBJECTIVE: VITAL SIGNS: The blood pressure is 122/97 and the pulse ox is 97% on 4 L. HEENT: Shows no facial swelling or erythema. CARDIAC: Reveals regular rate and rhythm with normal S1 and S2. LUNGS: Auscultation of lungs reveals clear breath sounds bilaterally. There is no wheezing. ABDOMEN: Soft, nontender. There is no rebound or guarding. EXTREMITIES: Shows no leg edema or calf tenderness. There is no cyanosis or clubbing. SKIN: Shows no rashes. NEUROLOGICAL: Shows no focal abnormalities. LABORATORY DATA: White blood cell count is 10.4 and hemoglobin is 12.6. The platelet count is 193. The BUN to creatinine ratio is 8 to 0.76 and the potassium is 3.4. Albumin is 3.4. ASSESSMENT: 1. Acute diastolic heart failure. 2. Infectious diarrhea and gastroenteritis. 3. Acute kidney injury. 4. Possible obstructive sleep apnea. PLAN: 1. Continue oxygen and use BiPAP only as needed. 2. Await completion of echocardiogram and Cardiology evaluation. 3. Continue current antibiotics as recommended by Infectious Disease. MD VÍCTOR Nix/JERMAINE /[id number]
--- NOTE | 2020-04-30 12:23 | Progress Note ---
DATE: SUBJECTIVE: The patient was seen and evaluated. Available labs and notes reviewed. Discussed with the nurse. Discussed with the patient. Uneventful night. The patient states that his urine output does increase. Discussed with the nurse. The patient is getting Lasix 40 push. REVIEW OF SYSTEMS: Improved shortness of breath and appetite is okay. No nausea, vomiting, fever, chills, headache, rash, or chest pain. PHYSICAL EXAMINATION: VITAL SIGNS: Temperature is 97.7, pulse is 95, respirations 18, blood pressure 122/97, and pulse ox is 97%. GENERAL: Alert and oriented, in no acute distress. CV: S1, S2. CHEST: Equal expansion. Clear to auscultation, in no acute distress with decreased breath sounds. ABDOMEN: Soft, obese, and nontender. Positive bowel sounds. HEENT: Moist. No pallor. No JVD. EXTREMITIES: Moves all, improved edema. MEDICATIONS: Medication list reviewed. The patient is on: 1. Flagyl. 2. Rocephin from ID point of view. LABORATORY STUDIES: White count of 10.43, hemoglobin 12.6, and platelets 193. Sodium 137, potassium 3.4, and creatinine 0.76. MICROBIOLOGY DATA: Blood culture, gram-negative yazmin one set and another set is negative 48 hours. Urine culture showed E coli. Stool for ova and parasite is pending. Urine culture is pansensitive. IMAGING DATA: No new radiology studies available. Chest x-ray performed yesterday showed no significantly changed bilateral parahilar airspace opacities, representing edema and/or pneumonia. ASSESSMENT AND PLAN: 1. Gram-negative bacteremia. 2. Diarrhea - improved. 3. Urinary tract infection. 4. Follow with the blood culture, final resolved. Discussed with Dr. Kapoor and discussed with the patient. Urine is sensitive to Rocephin. Further management of this patient is based on daily findings on laboratory and physical examination. Discussed with Dr. Kapoor. Please refer to chart for more information. Dictated by Lavon Galvin PA-C (Al) César Kapoor MD /MODL /[id number]
--- NOTE | 2020-04-30 16:39 | NUR ---
Nutrition Screen Note RD Recommendation for Physician: -Recommend advancing to cardiac diet as medically appropriate Plan of Care: RD following, monitoring for tolerance and adequacy Nutrition reason for involvement: Nutrition Risk Trigger Primary Diagnose(s): dehydration, diarrhea, and pneumonia PMH: morbid obesity, hypertension, hypothyroidism, hyperlipidemia, torn right rotator cuff, left knee arthritis, urinary frequency due to BPH, myocardial infarction Ht: 67 in Wt:266 lb BMI: 41.7 kg/m2 IBW: [address] Assessment: (04/30/20) Chart reviewed. Labs and meds reviewed. Pt is a 79 year old male admitted with dehydration, diarrhea, and pneumonia. Pt is currently tolerating a clear liquid diet. Prior to admission, pt reports eating all of his meals. Pt also mentioned he used to weigh 274 lbs and has been trying to lose weight. No N/V or chewing/swallowing issues. Will continue to monitor. Current Diet: clear liquids Malnutrition Evaluation (04/30/20) The patient does not meet criteria for a specified degree of malnutrition at this time. Will re-evaluate at follow-up as appropriate. Diet Education Needs Assessment: Diet education not indicated at this time, pt is on a temporary/transition diet Nutrition Care Level: low Signed: Terra Saldana, RD, LD
[2020-04-30 17:28] VITALS: BP 142/89
[2020-04-30 19:22] VITALS: BP 133/83
[2020-04-30 20:00] VITALS: BP 122/68
[2020-04-30] MEDS ORDERED: POTASSIUM CHLORIDE 20 MEQ TAB CR PO ONE (20:15)
[2020-04-30] MEDS ORDERED: FUROSEMIDE INJ 10 MG/ML 4 ML VIAL IV ONE (20:20)
[2020-05-01] MEDS: METRONIDAZOLE 500MG/NS 100ML 100 ML IV SCH ×4 (00:07→18:36)
[2020-05-01 00:25] VITALS: BP 130/84
[2020-05-01] MEDS: ALBUTEROL SULF 0.083% NEB SOLN 3 ML NEB NEB SCH ×2 (01:00→09:10)
[2020-05-01] MEDS ORDERED: METOPROLOL TARTRATE INJ 1 MG/ML VIAL IV ONE (02:00)
[2020-05-01] MEDS ORDERED: METOPROLOL TARTRATE 25 MG TAB PO ONE (02:00)
[2020-05-01] MEDS: MORPHINE SULFATE 2 MG/ML SYR 1ML IV PRN (03:09)
[2020-05-01 04:22] VITALS: BP 130/74
[2020-05-01] MEDS ORDERED: SODIUM CHLORIDE 0.9% 250ML 250 ML ONE (07:31)
[2020-05-01 08:00] VITALS: BP 102/85
[2020-05-01] MEDS ORDERED: METOPROLOL TARTRATE 25 MG TAB PO SCH (09:00)
[2020-05-01 09:06] VITALS: BP 97/67
[2020-05-01 09:07] LABS: BASOPHILS # (AUTO) 0.1 (0.0-0.1); BASOPHILS % 0.5 % (0.0-1.0); EOSINOPHILS # (AUTO) 0.2 (0.0-0.4); EOSINOPHILS % 1.8 % (0.0-6.0); HEMATOCRIT 41.7 % (38.2-49.6); HEMOGLOBIN 13.5 g/dL (14.0-18.0); LYMPHOCYTES # (AUTO) 1.9 (1.0-3.2); LYMPHOCYTES % 21.1 % (18.0-39.1); MEAN CORPUSCULAR HEMOGLOBIN 28.9 pg (28-32); MEAN CORPUSCULAR HGB CONC 32.4 g/dL (31-35); MEAN CORPUSCULAR VOLUME 89.3 fL (81-99); NEUTROPHILS # (AUTO) 5.9 (2.1-6.9); NEUTROPHILS % 64.8 % (38.7-80.0); PLATELET COUNT 253 x10e3/uL (140-360); RED BLOOD COUNT 4.67 x10e6/uL (4.3-5.7); RED CELL DISTRIBUTION WIDTH 13.5 % (11.7-14.4)
[2020-05-01 09:28] LABS: ANION GAP 16.2 mmol/L (8-16); BLOOD UREA NITROGEN 14 mg/dL (7-26); BUN/CREATININE RATIO 18 (6-25); CALCIUM 9.5 mg/dL (8.4-10.2); CARBON DIOXIDE 27 mmol/L (22-29); CHLORIDE 101 mmol/L (98-107); CREATININE, SERUM 0.77 mg/dL (0.72-1.25); EST GLOMERULAR FILTRATION RATE > 60 ML/MIN (60-); GLUCOSE 133 mg/dL (74-118); POTASSIUM 4.2 mmol/L (3.5-5.1); SODIUM 140 mmol/L (136-145)
[2020-05-01] MEDS ORDERED: HEPARIN 25,000 UNIT 1,000 UNIT in DEXTROSE 5% 250ML 250 ML IV SCH (09:30)
[2020-05-01] MEDS ORDERED: AMIODARONE HCL 900 MG in DEXTROSE 5% 500ML 500 ML IV ONE (09:30)
[2020-05-01] MEDS ORDERED: AMIODARONE HCL 150MG 100 ML IV SCH (09:30)
[2020-05-01] MEDS ORDERED: AMIODARONE HCL 360MG 200 ML IV SCH ×2 (09:30→12:00)
[2020-05-01] MEDS: CHOLESTYRAMINE 4 GM PACKET PO SCH ×3 (09:49→21:55)
[2020-05-01 11:01] LABS: PARTIAL THROMBOPLASTIN TIME 34.5 seconds (23.8-35.5)
[2020-05-01 11:19] LABS: INR 1.01; PROTHROMBIN TIME 13.9 seconds (11.9-14.5)
--- NOTE | 2020-05-01 11:23 | NUR ---
Coagulation results are not back from lab. Have spoken with labs staff who states results will be coming soon, so the heparin drip can be started.
[2020-05-01] MEDS ORDERED: HEPARIN SOD (PORCINE) 5,000 UNIT/ML VIAL IV ONE (11:45)
[2020-05-01] MEDS: HEPARIN 25,000 UNIT 1,000 UNIT in DEXTROSE 5% 250ML 250 ML IV SCH (12:13)
--- NOTE | 2020-05-01 12:43 | Progress Note ---
DATE: SUBJECTIVE: The patient is seen and evaluated. Available labs and notes reviewed and discussed with the nurse. Apparently, the patient having atrial fibrillation and RVR. Nurse is aware and however, patient clinically is fine and he does not feeling any different. He has few coughs, eating lunch. No nausea, vomiting, fever, chills, chest pain. His shortness of breath has improved and clinically he feels better. PHYSICAL EXAMINATION: VITAL SIGNS: Temperature 99, has improved from 102.9 on 04/28, pulse 127, respiration 22, blood pressure 102/85. GENERAL: Alert and oriented, no acute distress. CV: S1, S2. CHEST: Equal expansion, decreased breath sounds. No acute distress. Clear to auscultation bilateral. ABDOMEN: Soft and nontender. No distention. HEENT: Moist. No pallor. No JVD. EXTREMITIES: Moves all and some trace edema. MEDICATIONS: Medication is reviewed. As far as Infectious Disease point of view, the patient is on Flagyl and Rocephin. LABORATORY STUDIES: White count of 9.11, hemoglobin 13.5, platelet 253. Sodium 140, potassium 4.2 creatinine 0.77. Serology: Coronavirus PCR not detected on 04/28 x2. Also C difficile was negative. MICROBIOLOGY: No new microbiology studies available. RADIOLOGY STUDIES: The patient had a swallow test done. Also, the patient had an echocardiogram done showing ejection fraction of 55% to 60%, pending official reading of the echo. Cardiology note from yesterday noted, which is Dr. Davison. ASSESSMENT AND PLAN: 1. Gram-negative bacteremia, pending identification and sensitivity. 2. Urinary tract infection with Escherichia coli, which is pansensitive including Rocephin. 3. Diarrhea-improved, C difficile negative. 4. Obesity. 5. Debility. 6. Atrial fibrillation with rapid ventricular response. Cardiology on the case. The patient received dose of amiodarone. Continue with the antibiotics. Follow with the blood culture identification and sensitivity, most likely going to be sensitive, since patient's fever is gone and clinically feels better. Further management of this patient is based on daily findings on laboratory and physical examination. Dictated by Lavon Galvin PA-C (Al) César Kapoor MD /HUBERL /[id number]
[2020-05-01] MEDS ORDERED: LEVALBUTEROL HCL SOLN NEBU 0.63 MG/3 ML NEB INH PRN (13:45)
--- NOTE | 2020-05-01 14:26 | NUR ---
attempted to see pt but nurse deferred tx due to pt is a-fib/rvr in the 150's ..f/u on sunday Addendum: 05/01/20 at 1427 by Mejia Tse PTA Amended: Links added.
--- NOTE | 2020-05-01 15:03 | Progress Note ---
DATE: SUBJECTIVE: The patient had some rapid atrial fibrillation this morning. He was started on amiodarone. He has no chest pain. He feels better. PHYSICAL EXAMINATION: VITAL SIGNS: The blood pressure is 102/85 and the heart rate is 80 to 90. Saturation is 98% on 3 L. HEENT: Shows no facial swelling or erythema. CARDIAC: Reveals regular rate and rhythm with normal S1 and S2. LUNGS: Auscultation of lungs reveals crackles at the bases. There is no wheezing. ABDOMEN: Soft and nontender. There is no rebound or guarding. EXTREMITIES: Shows no leg edema or calf tenderness. There is no cyanosis or clubbing. SKIN: Shows no rashes. NEUROLOGICAL: Shows no focal abnormalities. LABORATORY DATA: White blood cell count is 9.11 and the hemoglobin is 13.5. The platelet count is 253. BUN to creatinine ratio is normal. Other electrolytes are within normal limits. IMPRESSION: 1. Acute diastolic heart failure. 2. Gastroenteritis. 3. Atrial fibrillation with rapid ventricular response. 4. Acute kidney injury. PLAN: 1. Continue amiodarone. 2. Oxygen. 3. Complete antibiotics. 4. Continue to monitor blood counts and creatinine. Manny Chahal MD LM/JERMAINE /[id number]
[2020-05-01 19:00] VITALS: BP 122/72
--- NOTE | 2020-05-01 19:00 | NUR ---
PTT 38.9. Increase heparin by 200u/hr = 1200 units/hr, 12ml/hr
[2020-05-01 19:22] VITALS: BP 126/74
--- NOTE | 2020-05-01 19:49 | Progress Note ---
DATE: 05/01/2020 Cardiology Progress Note SUBJECTIVE: Lightheadedness, palpitations, and mild shortness of breath in the setting of atrial fibrillation with rapid ventricular response. OBJECTIVE: VITAL SIGNS: Temperature 99 degrees, heart rate in the 140s, atrial fibrillation converted to regular rhythm 90s while in the room. Respiratory rate 22, blood pressure 102/85, and O2 saturation 94% on 3 L/minute nasal cannula. GENERAL: No acute distress. Alert. NECK: No JVD. CHEST: Clear to auscultation. CARDIOVASCULAR: Initially regular rate and rhythm. Normal S1 and S2. No S3 or S4 systolic ejection murmur. ABDOMEN: Soft. Bowel sounds positive. EXTREMITIES: Trace edema. CARDIOVASCULAR MEDICATIONS: Reviewed. IV amiodarone drip per protocol, heparin IV drip per protocol, and metoprolol tartrate 25 mg every 12 hours. STUDIES: Reviewed. White blood cells 9.1, hemoglobin 13.5, and platelets 253. INR 1. Sodium 140, potassium 4.2, chloride 101, bicarbonate 27, BUN 14, creatinine 0.7, glucose 133, calcium 9.5, magnesium 1.9, and phosphorus 2.9. TSH 2.2. Coronavirus negative. ASSESSMENT AND PLAN: 1. Paroxysmal atrial fibrillation. 2. Hmjpe-ra-ikawhvn diastolic heart failure. 3. Gastroenteritis. 4. Status post acute kidney injury. RECOMMEND: 1. Transition amiodarone to p.o. 2. Continue metoprolol at current dosing. Can switch to extended-release fibrillation prior to discharge. 3. Discussed with patient alternatives, indications, risks, and benefits for thromboembolic risk prevention. Alternatives including direct oral anticoagulant, vitamin K antagonist, aspirin, and watchman. The patient voices understanding and preference. At this point, given concerns for significant intake of vegetables in his diet, preference is towards Eliquis upon discharge. We will transition. Flavio Bush MD AFKeon/JERMAINE /[id number]
[2020-05-01] MEDS: CEFTRIAXONE SOD 2 GM/NS 100 ML 100 ML IV SCH (21:55)
[2020-05-02] VITALS (11 sets, daily range): BP systolic 111–172; BP diastolic 47–102
--- NOTE | 2020-05-02 00:55 | NUR ---
PTT 41.O, INCREASED CURRENT RATE TO 1300U/HR, NEXT PTT IS 0600
[2020-05-02] MEDS: METRONIDAZOLE 500MG/NS 100ML 100 ML IV SCH ×5 (05:12→22:49)
--- NOTE | 2020-05-02 06:45 | NUR ---
patient ptt 42.4, increased heparin drip to 1400u/hr, next ptt at 1pm
[2020-05-02] MEDS: CHOLESTYRAMINE 4 GM PACKET PO SCH ×3 (09:10→22:49)
[2020-05-02] MEDS: AMIODARONE HCL 200 MG TAB PO SCH ×2 (09:10→17:50)
[2020-05-02] MEDS ORDERED: METOPROLOL SUCCINATE 50 MG TAB XL PO SCH ×2 (09:30→21:00)
[2020-05-02] MEDS: HEPARIN 25,000 UNIT 1,000 UNIT in DEXTROSE 5% 250ML 250 ML IV SCH (10:39)
[2020-05-02] MEDS: METOPROLOL TARTRATE 50 MG TAB PO SCH ×2 (13:35→22:49)
--- NOTE | 2020-05-02 14:01 | NUR ---
APTT 55.8 NO CHANGES TO THE HEPARIN DRIP WILL RECHECK APTT IN THE MORNING.
--- NOTE | 2020-05-02 14:14 | NUR ---
Called Dr. Rosalia Davison, made aware patient's blood pressure 172/102 hr 80, informed Dr. Davison I administered metoprolol tartrate, 50 mg PO as ordered, no new orders received.
[2020-05-02] MEDS ORDERED: CLONAZEPAM 0.5 MG TAB PO PRN (14:15)
--- NOTE | 2020-05-02 14:18 | Progress Note ---
DATE: SUBJECTIVE: The patient is seen and evaluated. Available labs and notes reviewed. Discussed with Dr. Kapoor and discussed with the nurse, long discussion with the patient. REVIEW OF SYSTEMS: Complaining of blood pressure, systolic blood pressure in 150s this morning, which apparently was in 140s prior to that. Overall, feels better. No nausea, vomiting, fever, chills, chest pain, shortness of breath. Cough has improved. PHYSICAL EXAMINATION: VITAL SIGNS: Temperature is 98.1, pulse 80, respirations 23, blood pressure 144/85. GENERAL: Alert and oriented, in no acute distress. CV: S1-S2. CHEST: Equal expansion. Clear to auscultation, no acute distress. ABDOMEN: Soft, obese, nontender. HEENT: Moist. No pallor. No JVD. EXTREMITIES: Improved edema and moves all extremities. No acute finding. MEDICATIONS: Medication list reviewed from Infectious Disease point of view. The patient is on Rocephin and Flagyl. LABORATORY STUDIES: White count 9.11, hemoglobin 13.5, platelets 253 with a creatinine of 0.77 all from 05/01/2020. No new CBC or BMP from today. LFT includes 45 on 04/30. C difficile negative on 04/28. COVID-19 negative on 04/28 x2. MICROBIOLOGY: No new microbiology studies available. ASSESSMENT AND PLAN: 1. Gram-negative bacteremia with identification and sensitivity still pending. However, urine was E coli and pansensitive. 2. Urinary tract infection. 3. Diarrhea-Clostridium difficile negative. As mentioned above, diarrhea resolved/improved. 4. Obesity. 5. Debility. 6. Atrial fibrillation with rapid ventricular response. Cardiology is on the case. Continue to monitor the patient clinically and follow up with the patient blood culture. Fever resolved. Further management of this patient is based on daily findings on laboratory and physical examination. Please refer to chart for more information. Dictated by Lavon Galvin PA-C (Al) César Kapoor MD /MODL /[id number]
--- NOTE | 2020-05-02 16:06 | Diagnostic Imaging Report ---
EXAMINATION: CHEST SINGLE (PORTABLE) INDICATION: Shortness of breath. COMPARISON: 04/29/2020 FINDINGS: AP view TUBES and LINES: None. LUNGS: Bilateral low lung volumes. Patchy density in the lingula and left lower lobe and right lung base again observed, unchanged. PLEURA: No pleural effusion or pneumothorax. HEART AND MEDIASTINUM: The cardiomediastinal silhouette is enlarged on this AP view. Atherosclerotic changes of the arch. BONES AND SOFT TISSUES: No acute osseous lesion. UPPER ABDOMEN: No free air under the diaphragm. IMPRESSION: No significantly changed bilateral patchy airspace disease. Signed by: Dr. Wilda Butt M.D. on 05/02/2020 4:03 PM
[2020-05-02] MEDS: CEFTRIAXONE SOD 2 GM/NS 100 ML 100 ML IV SCH (20:00)
[2020-05-02] MEDS ORDERED: HYDRALAZINE HCL 20 MG/ML VIAL IV PRN (20:15)
[2020-05-02] MEDS ORDERED: ONDANSETRON HCL INJ 2MG/ML 2ML 2 MG/ML VIAL IV PRN (20:15)
[2020-05-03] VITALS (9 sets, daily range): BP systolic 126–146; BP diastolic 73–92
[2020-05-03] MEDS: METRONIDAZOLE 500MG/NS 100ML 100 ML IV SCH ×3 (05:19→18:34)
[2020-05-03] MEDS: METOPROLOL TARTRATE 50 MG TAB PO SCH (05:23)
[2020-05-03 05:53] LABS: BASOPHILS # (AUTO) 0.1 (0.0-0.1); BASOPHILS % 0.9 % (0.0-1.0); EOSINOPHILS # (AUTO) 0.3 (0.0-0.4); EOSINOPHILS % 2.8 % (0.0-6.0); HEMATOCRIT 38.3 % (38.2-49.6); HEMOGLOBIN 12.3 g/dL (14.0-18.0); LYMPHOCYTES # (AUTO) 3.2 (1.0-3.2); MEAN CORPUSCULAR HEMOGLOBIN 28.4 pg (28-32); MEAN CORPUSCULAR HGB CONC 32.1 g/dL (31-35); MEAN CORPUSCULAR VOLUME 88.5 fL (81-99); MONOCYTES # (AUTO) 1.1 (0.2-0.8); MONOCYTES % 9.5 % (4.4-11.3); NEUTROPHILS # (AUTO) 6.9 (2.1-6.9); NEUTROPHILS % 57.5 % (38.7-80.0); PLATELET COUNT 212 x10e3/uL (140-360); RED BLOOD COUNT 4.33 x10e6/uL (4.3-5.7); RED CELL DISTRIBUTION WIDTH 13.4 % (11.7-14.4)
[2020-05-03 06:12] LABS: ANION GAP 17.9 mmol/L (8-16); BLOOD UREA NITROGEN 16 mg/dL (7-26); BUN/CREATININE RATIO 20 (6-25); CARBON DIOXIDE 22 mmol/L (22-29); CHLORIDE 103 mmol/L (98-107); EST GLOMERULAR FILTRATION RATE > 60 ML/MIN (60-); GLUCOSE 117 mg/dL (74-118); MAGNESIUM 1.8 MG/DL (1.3-2.1); PHOSPHORUS 3.4 MG/DL (2.3-4.7); POTASSIUM 3.9 mmol/L (3.5-5.1); SODIUM 139 mmol/L (136-145)
--- NOTE | 2020-05-03 06:20 | Progress Note ---
DATE: 05/02/2020 DATE OF SERVICE: 05/02/2020. SUBJECTIVE: The patient lying supine in bed, mild shortness of breath. Denies diarrhea. OBJECTIVE: VITAL SIGNS: Temperature 98.5, heart rate 80, blood pressure 116/80, respirations 26, oxygen saturation 98%. GENERAL: Supine. LUNGS: Clear to auscultation. Oxygen at 3 L/minute via nasal cannula. HEENT: EOMI. NECK: Supple. CARDIOVASCULAR: Irregularly irregular rhythm. No murmur. Heparin drip and amiodarone drip. ABDOMEN: Bowel sounds positive. Soft, nontender. EXTREMITIES: No clubbing, cyanosis, or edema. No signs of DVT. Neurologic: GCS 15. Nonfocal. LABORATORY DATA: No new labs today. RADIOLOGY: Chest x-ray showed no significant change in bilateral patchy airspace disease. ASSESSMENT/PLAN: 1. Ofats-dw-wspilbi diastolic congestive heart failure. Cardiology following. Monitor chest x-ray results. 2. Paroxysmal atrial fibrillation with recent rapid ventricular response. Currently, heart rate controlled at 80. Continue heparin and amiodarone drips. Convert p.o. amiodarone as tolerated. Probable preference toward Eliquis anticoagulation. Continue metoprolol. 3. Gram-negative bacteremia with identification and sensitivity pending. Infectious Disease following. Continue Rocephin and Flagyl. 4. Pansensitive Escherichia coli urinary tract infection. Continue Rocephin. 5. Gastroenteritis with recent diarrhea. Diarrhea resolved. Clostridium difficile toxin was negative. 6. Prophylaxis, IV Pepcid. Billing code 33044. Time spent 35 minutes. Dictated by Xavier Cardenas NP MD OSIRIS DuarteP/MODL /[id number]
--- NOTE | 2020-05-03 10:12 | Progress Note ---
DATE: 05/03/2020 Cardiology Progress Note SUBJECTIVE: No complaints. OBJECTIVE: VITAL SIGNS: Temperature 98.3, heart rate 64, respiratory rate 20, blood pressure 135/86, O2 saturation 95% on 2 L/minute nasal cannula. GENERAL: In no acute distress, alert. NECK: No JVD. CHEST: Clear to auscultation. CARDIOVASCULAR: Regular rate and rhythm. Normal S1, S2. No S3 or S4. ABDOMEN: Soft. Bowel sounds positive. EXTREMITIES: Trace edema.. CARDIOVASCULAR MEDICATIONS: Reviewed metoprolol tartrate 50 mg every 8 hours, amiodarone 20 mg b.i.d., IV heparin. LABORATORY DATA: Studies reviewed. White blood cells 11, hemoglobin 12.3, platelets 212. Sodium 139, potassium 3.9, chloride 103, bicarbonate 22, BUN 16, creatinine 0.8, glucose 117, magnesium 1.8, phosphorus 3.4, calcium 9. Chest x-ray, no significant change of bilateral patchy airspace disease. Telemetry, sinus rhythm. ASSESSMENT: 1. Paroxysmal atrial fibrillation. 2. Acute on chronic diastolic heart failure. 3. Gastroenteritis. 4. Status post acute kidney injury. RECOMMENDATIONS: 1. Initiate Eliquis 5 mg every 12 hours. 2. Continue amiodarone low dose. 3. Continue metoprolol and switch to extended release formulation. 4. Okay to discharge from a cardiovascular standpoint with outpatient followup in 3-4 weeks. MD LISSET Velasquez/JERMAINE /[id number]
[2020-05-03] MEDS: AMIODARONE HCL 200 MG TAB PO SCH ×2 (10:15→18:31)
[2020-05-03] MEDS: CHOLESTYRAMINE 4 GM PACKET PO SCH ×3 (10:15→22:25)
--- NOTE | 2020-05-03 11:07 | Progress Note ---
DATE: SUBJECTIVE: The patient is seen and evaluated. Available labs and notes reviewed. Discussed with Dr. Kapoor. Discussed with the patient in details. Please refer to chart for more information. REVIEW OF SYSTEMS: No nausea, vomiting, fever, chills, chest pain, shortness of breath has improved. The patient thinks he may benefit from some physical therapy. Other than that, no new complaints. Also wants to go home. PHYSICAL EXAMINATION: VITAL SIGNS: Temperature 98.3, pulse 64, respirations 20, and blood pressure 135/86. GENERAL: Alert and oriented. No acute distress. CV: S1 and S2. CHEST: Equal expansion. Decreased breath sounds. No acute distress. It is clear to auscultation bilaterally. ABDOMEN: Soft, obese, and nontender. HEENT: Moist. No pallor. No JVD. EXTREMITIES: Trace edema. Moves all. No acute finding. MEDICATIONS: Medication list reviewed and from Infectious Disease point of view, the patient is on Rocephin and Flagyl. LABORATORY STUDIES: White count of 11.94, hemoglobin 12.3, and platelet 212. Sodium 139, potassium 3.9, and creatinine 0.8. No new serology studies available. MICROBIOLOGY: Urine culture E. coli pansensitive. Blood culture from 04/28/2020, still pending. IMAGING: No new radiology studies available. Had a chest x-ray yesterday, showing no significantly changed bilateral patchy airspace disease. ASSESSMENT AND PLAN: 1. Gram-negative bacteremia, on admission. Sensitivity is still pending. I called microbiology lab and apparently they were not able to do sensitivity. Therefore, lab was sent out yesterday to another facility for culture sensitivity urine. 2. Urinary tract infection with Escherichia coli, which is pansensitive. 3. Diarrhea. Clostridium difficile was negative. Diarrhea is improving. 4. Debility. 5. Atrial fibrillation. 6. Obesity. 7. Fluid overload significant improvement. 8. Continue with Rocephin and Flagyl. Follow with final blood culture, hopefully tomorrow per my discussion with the microbiology lab. Further management of this patient is based on daily physical exam and labs as become more available. His white count is slightly higher today and had a temperature of 99.6 at the max, but clinically no acute finding. Dictated by Lavon Galvin PA-C (Al) MD [facility] Vo/JERMAINE /[id number]
--- NOTE | 2020-05-03 16:49 | Progress Note ---
DATE: Pulmonary Critical Care Progress Note SUBJECTIVE: The patient is feeling better. He has less dyspnea. He is not having any further diarrhea. PHYSICAL EXAMINATION: VITAL SIGNS: Blood pressure is 146/92, saturation is 97% on 2 L, pulse is 79, and respiratory rate is 26. HEENT: Shows no facial swelling or erythema. CARDIAC: Reveals regular rate and rhythm with normal S1, S2. LUNGS: Auscultation of lungs reveals crackles at the bases. There is no wheezing. ABDOMEN: Soft, nontender. There is no rebound or guarding. EXTREMITIES: Shows no leg edema or calf tenderness. There is no cyanosis or clubbing. SKIN: Shows no rashes. LABORATORY DATA: White blood cell count is 11.9, hemoglobin is 12.3, and the platelet count is 212. FMC-qq-pjygdqoksf ratio is normal. The other electrolytes are within normal limits. IMPRESSION: 1. Acute gastroenteritis. 2. Acute diastolic heart failure. 3. Atrial fibrillation. 4. Acute kidney injury. PLAN: 1. Continue current cardiac regimen. 2. Wean oxygen. 3. Discussed disposition with Dr. Lawson and Case Management. Manny Chahal MD [facility]/MODL /[id number]
[2020-05-03] MEDS: APIXABAN 5 MG TABLET PO SCH (18:31)
[2020-05-03] MEDS: CEFTRIAXONE SOD 2 GM/NS 100 ML 100 ML IV SCH (20:00)
--- NOTE | 2020-05-03 20:04 | NUR ---
Received pt awake sitting up in bed. A/O x3 no c/o at this time, bed in low position. Resp even and unlabored. Pt awaiting transfer to med/surg unit with tele and cont pulse ox. Personal items and call light within reach will cont to monitor.
--- NOTE | 2020-05-03 21:11 | NUR ---
Transfer report called to nurse. No c/o noted, in to see patient. IV ABX infusing w/ no diff.
[2020-05-03] MEDS ORDERED: ACETAMINOPHEN325 M1 PO (21:26)
[2020-05-03] MEDS ORDERED: TOPROL XL50 MG PO (21:26)
[2020-05-03] MEDS ORDERED: AMIODARONE HCL200 MG PO (21:26)
[2020-05-03] MEDS ORDERED: KEFLEX500 MG PO (21:26)
[2020-05-03] MEDS ORDERED: ELIQUIS5 MG PO (21:26)
[2020-05-03] MEDS ORDERED: CHOLESTYRAMINE L4 GM PO (21:26)
--- NOTE | 2020-05-03 22:00 | NUR ---
Patient arrived in Rm 293 via wheelchair as a transfer from [facility] Rm 199 and escorted by ICU nurse (Danica). Pt is alert and oriented x3. Ambulatory with standby assist. Pt on telemetry and on 2L NC. RT notified and will perform O2 eval on pt tonight. 93% O2 sat on 2L NC. Pt asking to take a shower tonight. Condition stable. Call treadwell within reach.
--- NOTE | 2020-05-03 22:40 | NUR ---
Patient escorted to the bathroom and is taking a self bath at this time with NC in place. Condition stable.
--- NOTE | 2020-05-03 22:42 | NUR ---
RT (Thelma) reported she increased from 2L to 3L on the NC since pt dropped a little to 91% on O2 sat.
[2020-05-04] VITALS: BP 146/99
--- NOTE | 2020-05-04 | NUR ---
Dr. Leigh Garrett came and visited pt in room. aware pt in stable condition.
[2020-05-04] MEDS ORDERED: SODIUM CHLORIDE 0.9% 250ML 250 ML ONE (00:41)
[2020-05-04] MEDS: METRONIDAZOLE 500MG/NS 100ML 100 ML IV SCH ×3 (00:48→11:14)
[2020-05-04 04:00] VITALS: BP 135/82
[2020-05-04 06:28] LABS: BASOPHILS # (AUTO) 0.1 (0.0-0.1); BASOPHILS % 0.8 % (0.0-1.0); EOSINOPHILS # (AUTO) 0.3 (0.0-0.4); EOSINOPHILS % 2.9 % (0.0-6.0); HEMATOCRIT 36.6 % (38.2-49.6); HEMOGLOBIN 12.2 g/dL (14.0-18.0); LYMPHOCYTES # (AUTO) 2.5 (1.0-3.2); LYMPHOCYTES % 24.2 % (18.0-39.1); MEAN CORPUSCULAR HEMOGLOBIN 29.4 pg (28-32); MEAN CORPUSCULAR HGB CONC 33.3 g/dL (31-35); MEAN CORPUSCULAR VOLUME 88.2 fL (81-99); MONOCYTES % 9.6 % (4.4-11.3); NEUTROPHILS # (AUTO) 5.7 (2.1-6.9); NEUTROPHILS % 56.5 % (38.7-80.0); PLATELET COUNT 288 x10e3/uL (140-360); RED BLOOD COUNT 4.15 x10e6/uL (4.3-5.7); RED CELL DISTRIBUTION WIDTH 13.4 % (11.7-14.4)
[2020-05-04 06:53] LABS: BLOOD UREA NITROGEN 11 mg/dL (7-26); BUN/CREATININE RATIO 13 (6-25); CALCIUM 8.5 mg/dL (8.4-10.2); CARBON DIOXIDE 25 mmol/L (22-29); CHLORIDE 104 mmol/L (98-107); CREATININE, SERUM 0.82 mg/dL (0.72-1.25); EST GLOMERULAR FILTRATION RATE > 60 ML/MIN (60-); GLUCOSE 110 mg/dL (74-118); SODIUM 139 mmol/L (136-145)
--- NOTE | 2020-05-04 06:54 | NUR ---
RECEIVED BEDSIDE SHIFT REPORT FROM OFF GOING NURSE. PATIENT IS RESTING IN BED. NO ACUTE DISTRESS NOTED. CALL LIGHT WITHIN REACH. BED IN THE LOWEST POSITION.
[2020-05-04 08:14] VITALS: BP 137/86
--- NOTE | 2020-05-04 08:43 | Progress Note ---
DATE: 05/03/2020 SUBJECTIVE: The patient is sitting on the edge of the bed. The patient appears relaxed, oxygen was removed to determine the patient's ability to breathe on only room air. Oxygen saturation dropped to 89%. Apparently, he has had several instances where he has become short of breath in the past and needed oxygen in an emergent way. OBJECTIVE: VITAL SIGNS: Temperature 98.3, heart rate 64, blood pressure 135/86, respirations 20, oxygen saturation 95%. LUNGS: Clear to auscultation. Mild shortness of breath. No elevated work of breathing. Oxygen was at 2 L/minute via nasal cannula. HEENT: EOMI NECK: Supple. CARDIOVASCULAR: Irregularly irregular rhythm. No murmur. He is no longer on heparin drip or amiodarone drip. ABDOMEN: Bowel sounds positive. Soft, obese, and nontender. EXTREMITIES: No clubbing, cyanosis, or edema. No signs of DVT. NEUROLOGIC: GCS 15. Nonfocal. LABORATORY DATA: WBC 11.94, hemoglobin 12.3, hematocrit 38.3, platelets 212,000. PTT 63. Sodium 139, potassium 3.9, chloride 103, CO2 22, anion gap 17.9, BUN 16, creatinine 0.8, estimated GFR greater than 60, glucose 117, calcium 9.0, phosphorus 3.4, magnesium 1.8. No new radiology studies. ASSESSMENT/PLAN: 1. Acute on chronic diastolic congestive heart failure per Cardiology progress note. Metoprolol and beta elier continued, okay to discharge from a cardiovascular standpoint with outpatient followup in 3-4 weeks. 2. Respiratory insufficiency due to CHF as the patient has had several instances where he needed oxygen in an emergent way in past experiences. We will get home oxygen evaluation. This may help prevent recidivism. Continue supplemental oxygen and wean as tolerated. Order entered for Case Management to not only obtain home oxygen if he qualifies, but to get outpatient physical therapy as well as longterm evaluation for congestive heart failure education. 3. Paroxysmal atrial fibrillation with recent rapid ventricular response, currently heart rate 64. Eliquis 5 mg p.o. q.12 hours initiated by Cardiology. Continue low-dose amiodarone and metoprolol. 4. Gram-negative bacteremia, on admission, sensitivities still pending. Microbiology lab has been called by Dr. Kapoor and apparently they were not able to do the sensitivity. Thus, the lab was sent out yesterday to another facility for culture and sensitivity of urine. 5. Pansensitive E coli urinary tract infection. Continue Rocephin for now. Dr. Kapoor has left a prescription for Keflex in anticipation of patient's discharge soon 500 mg p.o. q.12 hours. 6. Gastroenteritis with recent diarrhea. Diarrhea resolved. Clostridium difficile toxin was negative. Dictated by Xavier Cardenas, NAVJOT MD [facility]KA Duarte/HUBERL /[id number]
[2020-05-04] MEDS ORDERED: GUAIFENESIN 600MG/DEXTROMETHORPHAN 30MG TABSR PO SCH (09:00)
[2020-05-04] MEDS: APIXABAN 5 MG TABLET PO SCH (09:05)
[2020-05-04] MEDS: AMIODARONE HCL 200 MG TAB PO SCH (09:05)
[2020-05-04] MEDS: CHOLESTYRAMINE 4 GM PACKET PO SCH (09:05)
[2020-05-04 09:18] VITALS: BP 137/86
[2020-05-04 10:54] LABS: EOSINOPHILS % (MANUAL) 2 % (0-7); LYMPHOCYTES % (MANUAL) 23 % (19-48); MONOCYTES % (MANUAL) 11 % (3.4-9.0); NEUTROPHILS % (MANUAL) 64 % (40-74)
[2020-05-04 10:55] LABS: PLATELET ESTIMATE ADEQUATE; PLATELET MORPHOLOGY COMMENT NORMAL; RBC MORPHOLOGY COMMENT NORMAL
--- NOTE | 2020-05-04 11:00 | NUR ---
CALL TO PT IN ROOM TO DISCUSS CHOICE FOR HOME O2 AND HOME HEALTH. DISCUSSED HOME HEALTH AND THEIR ROLE. PT VERBALIZED UNDERSTANDING AND AGREED W CHF TEACHING. CHOICES: [facility], [facility], [facility] [place]. PT CHOSE [facility] DISCUSSED HOME O2. CHOICES [facility] AND [facility] PT CHOSE [facility]. REFERRALS WERE FAXED TO [facility] @ OFF: [phone] / FAX: [phone] AND [facility] @ OFF: [phone] / FAX: [phone]. NOTIFIED BOTH COMPANIES OF FAXED REFERRALS.
[2020-05-04 11:25] VITALS: BP 164/91
--- NOTE | 2020-05-04 11:34 | Progress Note ---
DATE: SUBJECTIVE: The patient is seen and evaluated. Available labs and notes reviewed. Discussed with Dr. Kapoor. Please refer to chart for more information. REVIEW OF SYSTEMS: Complained of a cough when he lies down, but no nausea, vomiting, fever, chills, chest pain, or shortness of breath. The patient also complains that he is wheezing at times. PHYSICAL EXAMINATION: VITAL SIGNS: Temperature 97.9, pulse 68, respiration 20 and blood pressure 137/86. GENERAL: Alert and oriented, in no acute distress. CV: S1, S2. CHEST: Equal expansion. Decreased breath sounds. Some wheezing bilaterally. ABDOMEN: Soft, morbidly obese, and nontender HEENT: Moist. No pallor. No JVD. EXTREMITIES: Moves all with improving edema. MEDICATIONS: Reviewed. As far as Infectious Disease point of view, the patient is on Rocephin and Flagyl. LABORATORY STUDIES: White count of 10.14, improved from 11.94, hemoglobin 12.2, platelet 288. Sodium 139, potassium 4, creatinine 0.8. SEROLOGIES: Coronavirus PCR not detected x2 on 04/28/2020 with a C difficile negative on 04/28/2020. MICROBIOLOGY: No new microbiology studies available. Blood culture gram-negative yazmin from 04/28/2020 with the identification and sensitivity still pending. I have discussed with microbiology yesterday stating that there is sample that was sent out to another facility on 05/02/2020 for culture and sensitivity, as they were not able to do it here. His urine culture showed E coli pansensitive on 04/28/2020. Stool for ova and parasite is pending, however, was negative for Salmonella or Shigella and was negative also for Giardia workup from 04/28/2020. RADIOLOGY STUDIES: No new radiology studies available. ASSESSMENT AND PLAN: 1. Gram-negative bacteremia still pending identification and sensitivity, please refer to the top part of this note. 2. Urinary tract infection. 3. Resolved diarrhea. Clostridium difficile was negative. 4. Atrial fibrillation. 5. Obesity. 6. Fluid overload. 7. Cough when he lies down with concern for regurgitation from his stomach. 8. Continue with Rocephin and Flagyl. Continue with PT/OT, neb treatment. Please refer to chart for more information. A prescription is in chart for Keflex p.o. for 14 days. Dictated by CARISSA Velazquez (Al)C MD [facility]/JERMAINE /[id number]
--- NOTE | 2020-05-04 12:01 | NUR ---
HOME HEALTH DISCHARGE NOTE PATIENT ADDRESS WHERE SERVICE WILL BE RECEIVED: [address] [place] [id number] PATIENT CONTACT NUMBER: [phone] NAME OF HOME HEALTH COMPANY: [facility] TELEPHONE/FAX NUMBER OF COMPANY: OFF: [phone] / FAX: [phone] SERVICES TO RECEIVE: SN EVAL AND TREAT; [employer] CHF EDUCATION AND RESOURCES, PT EVAL AND TREAT ANTICIPATED DATE SERVICES WILL BEGIN: 05/05/2020 NAME OF HOME HEALTH COMPANY: [facility] TELEPHONE/FAX NUMBER OF COMPANY: OFF: [phone] / FAX: [phone] SERVICES TO RECEIVE: HOME O2 @ 3 LITERS PER MINUTE Please call the company above if you have not received a call to schedule a home visit within 24 hours of discharge.
[2020-05-04] MEDS ORDERED: OMEPRAZOLE40 MG PO (13:33)
[2020-05-04] MEDS ORDERED: REGLAN10 MG PO (13:33)
--- NOTE | 2020-05-04 15:04 | NUR ---
Received discharge order from [facility]. Patient is in stable condition. IV line to left hand discontinued with tip intact, dressing applied to site, no bleeding noted. O2 delivered to patient. Discharge teaching provided, he verbalized understanding. Discharge folder with paperwork and prescriptions on hand. All personal items on hand. Patient accompanied to private auto via wheelchair by staff.
[2020-05-04] MEDS ORDERED: MELATONIN 3 MG TAB PO SCH (21:00)
[2020-05-04] MEDS ORDERED: METOPROLOL SUCCINATE 50 MG TAB XL PO SCH (21:00)
--- NOTE | 2020-05-05 14:09 | Diagnostic Imaging Report ---
EXAMINATION: Modified barium swallow study CLINICAL HISTORY: ^SWALLOWING PROBLEM ^[id number] ^1030 ^Y [employer] VICE PRINCIPAL: Parrish Pena DO, JD DOSE INFORMATION - Ka,r: 23 mGy TECHNIQUE: The examination was performed in conjunction with speech pathology. Varying consistencies of barium was administered under fluoroscopic observation. IMPRESSION: Please refer to speech pathologist's note from same date. Signed by: Parrish Pena MD on 05/05/2020 2:06 PM
--- NOTE | 2020-05-06 03:13 | Discharge Summary ---
CONSULTING PHYSICIANS: 1. Dr. Flavio Bush with Cardiology. 2. Dr. César Kapoor with Infectious Disease. 3. Dr. Manny Chahal with Pulmonology. 4. Dr. Tyler Garrett with Gastroenterology. HOSPITAL COURSE: The patient is a 79-year-old male, who admitted with complaints of diarrhea approximately 25 times in a few days prior to admission. According to emergency room documentation, the patient felt weak, went down to the floor with diarrhea, which started on 04/27/2020 without any blood noted. At that time, he had a fever of 101.0. Emergency Medical Services stated that he was tachycardic on the scene, having multiple episodes of watery stools, 2 episodes of vomiting. ADMITTING DIAGNOSES: 1. Acute respiratory failure requiring BiPAP, unclear etiology. 2. Diarrhea and gastroenteritis, fecal occult blood test positive. 3. Acute kidney injury, improved. 4. Fever, resolved. 5. Metabolic acidosis. 6. Morbid obesity with BMI 41.65. DISCHARGE DIAGNOSES: 1. Acute on chronic diastolic congestive heart failure. 2. Respiratory insufficiency due to congestive heart failure. 3. Paroxysmal atrial fibrillation with recent rapid ventricular response. 4. Gram-negative bacteremia on admission. 5. Pansensitive Escherichia coli urinary tract infection, present on admission. 6. Gastroenteritis with recent diarrhea. Questran was used for the diarrhea and antibiotics, Flagyl and ceftriaxone, were utilized along with IV fluids. His diarrhea resolved. During his stay, echocardiogram showed an ejection fraction of 55% to 60%. Oxygen and BiPAP were used. Eliquis was used for the paroxysmal atrial fibrillation. Oxygen was weaned down. Prior to the patient leaving, he underwent a home oxygen evaluation and it was determined that he would benefit from having oxygen at home, especially in light of the recidivism in the past. It is also determined that he had developed some gastroparesis, especially when lying flat. The patient stated "as long as I am sitting straight I feel great, but if I lie down, then I cough." The patient to continue with cardiac diet, activity as tolerated, do not over-exerted yourself. Follow up with PCP, Dr. Aiden Lyman in 1-2 weeks. Follow up with Dr. Davison in 4 weeks. Follow up with Dr. Kapoor in 2 weeks. The patient will have home health through [facility]. The patient was sent home with new prescriptions, Tylenol, amiodarone 200 mg p.o. b.i.d., Eliquis 5 mg p.o. b.i.d., Keflex 500 mg p.o. q.12 hours for 14 days, Questran Light 4 g daily, metoclopramide 10 mg t.i.d., metoprolol succinate 150 mg p.o. every night at bedtime, omeprazole 40 mg daily. Dictated by Xavier Cardenas NP Krystian Lawson MD [facility]/MODL /[id number]
== END 2020-05-04 15:03 | disposition home health service (06) | DRG 391 ==
LOC: ER 06:57 → ERHOLD 10:39 → IMCU 17:08 → MED/SURG3 21:51 → IMCU 04-29 14:32 → MED/SURG3 05-03 22:10
PROVIDERS: ADMIT Internal Medicine; ATTEND Internal Medicine
DX: A05.9 Bacterial foodborne intoxication, unspecified (principal); J96.20 Acute and chronic respiratory failure, unspecified whether with hypoxia or hypercapnia; J69.0 Pneumonitis due to inhalation of food and vomit; I50.33 Acute on chronic diastolic (congestive) heart failure; R78.81 Bacteremia; Z68.41 Body mass index [BMI] 40.0-44.9, adult; N17.9 Acute kidney failure, unspecified; E87.2 Acidosis; N39.0 Urinary tract infection, site not specified; I11.0 Hypertensive heart disease with heart failure; E66.01 Morbid (severe) obesity due to excess calories; I48.0 Paroxysmal atrial fibrillation; B96.20 Unspecified Escherichia coli [E. coli] as the cause of diseases classified elsewhere; B96.89 Other specified bacterial agents as the cause of diseases classified elsewhere; Z11.59 Encounter for screening for other viral diseases; K31.84 Gastroparesis
CPT/HCPCS: 36415; 71045; 74177; 74230; 80048; 80053; 80061; 81001; 82270; 82550; 82553; 82948; 83036; 83605; 83735; 83880; 84100; 84443; 84484; 85025; 85610; 85730; 87040; 87045; 87071; 87086; 87177; 87186; 87205; 87328; 87493; 87635; 93005; 93306; 94640; 94660; 97139; 99285; J0456; J0696; J1644; J1940; J2270; J2405; J2543; J2930; J3475; J7030; J7050; J7060; Q9967

== ENCOUNTER 2020-11-21 15:52 | Observation (INO) | payer MEDICARE ==
[~2020-11-21] VITALS: Ht 170.2 cm; Wt 122.5 kg
[~2020-11-21 15:52] MED LIST: ACETAMINOPHEN325 M1 PO; AMIODARONE HCL200 MG PO; CHOLESTYRAMINE L4 GM PO; ELIQUIS5 MG PO; KEFLEX500 MG PO; OMEPRAZOLE40 MG PO; REGLAN10 MG PO; TOPROL XL50 MG PO
[2020-11-21 16:25] LABS: BASOPHILS # (AUTO) 0.1 (0.0-0.1); BASOPHILS % 0.7 % (0.0-1.0); EOSINOPHILS # (AUTO) 0.1 (0.0-0.4); EOSINOPHILS % 1.2 % (0.0-6.0); HEMATOCRIT 44.9 % (38.2-49.6); LYMPHOCYTES # (AUTO) 3.1 (1.0-3.2); LYMPHOCYTES % 33.6 % (18.0-39.1); MEAN CORPUSCULAR HEMOGLOBIN 29.4 pg (28-32); MEAN CORPUSCULAR HGB CONC 33.4 g/dL (31-35); MONOCYTES # (AUTO) 0.7 (0.2-0.8); MONOCYTES % 7.2 % (4.4-11.3); NEUTROPHILS # (AUTO) 5.2 (2.1-6.9); PLATELET COUNT 276 x10e3/uL (140-360); RED CELL DISTRIBUTION WIDTH 13.2 % (11.7-14.4)
[2020-11-21] MEDS ORDERED: ASPIRIN 81 MG CHEW TAB PO ONE ×2 (16:30→19:15)
[2020-11-21] MEDS ORDERED: DILTIAZEM HCL 5 MG/ML 5 ML VIAL IV STA ×3 (16:31→19:15)
[2020-11-21] MEDS ORDERED: SODIUM CHLORIDE 0.9% 1000ML 1,000 ML IV STA ×2 (16:31→18:11)
[2020-11-21 16:37] LABS: ALANINE AMINOTRANSFERASE 40 IU/L (0-55); ALBUMIN 4.2 g/dL (3.5-5.0); ALBUMIN/GLOBULIN RATIO 1.4 (0.8-2.0); ALKALINE PHOSPHATASE 45 IU/L (40-150); ANION GAP 17.2 mmol/L (8-16); BLOOD UREA NITROGEN 12 mg/dL (7-26); BUN/CREATININE RATIO 13 (6-25); CALCIUM 8.6 mg/dL (8.4-10.2); CARBON DIOXIDE 22 mmol/L (22-29); CHLORIDE 102 mmol/L (98-107); CREATINE KINASE 185 IU/L (30-200); CREATININE, SERUM 0.92 mg/dL (0.72-1.25); EST GLOMERULAR FILTRATION RATE > 60 ML/MIN (60-); GLUCOSE 156 mg/dL (74-118); POTASSIUM 4.2 mmol/L (3.5-5.1); SODIUM 137 mmol/L (136-145)
[2020-11-21] MEDS ORDERED: DILTIAZEM HCL VIAL 5 ML ONE (18:23)
[2020-11-21] MEDS ORDERED: DIGOXIN INJ 0.25 MG/ML 2 ML AMP IV STA (18:57)
[2020-11-21] MEDS ORDERED: METOPROLOL TARTRATE INJ 1 MG/ML VIAL ONE (19:27)
[2020-11-21] MEDS ORDERED: METOPROLOL TARTRATE INJ 1 MG/ML VIAL IV ONE (19:45)
[2020-11-21 20:00] VITALS: BP 129/76
[2020-11-21 21:09] VITALS: BP 119/70
[2020-11-21 22:00] VITALS: BP 119/70
[2020-11-21] MEDS: METOPROLOL TARTRATE INJ 1 MG/ML VIAL IV PRN (23:52)
[2020-11-21] MEDS: APIXABAN 5 MG TABLET PO SCH (23:55)
[2020-11-22] VITALS (7 sets, daily range): BP systolic 100–140; BP diastolic 50–95
[2020-11-22] MEDS ORDERED: POLYETHYLENE GLYCOL 3350 17 GM PACK PO PRN (00:15)
[2020-11-22] MEDS ORDERED: CHLORASEPTIC SPRAY 177 ML BTL MM PRN (00:15)
[2020-11-22] MEDS ORDERED: GUAIFENESIN/CODEINE 10 ML CUP PO PRN (00:15)
[2020-11-22] MEDS ORDERED: BENZONATATE 100 MG CAP PO PRN (00:15)
[2020-11-22] MEDS ORDERED: ONDANSETRON HCL INJ 2MG/ML 2ML 2 MG/ML VIAL IV PRN (00:15)
[2020-11-22] MEDS ORDERED: DOCUSATE SODIUM 100 MG CAP PO PRN (00:15)
[2020-11-22] MEDS ORDERED: ACETAMINOPHEN 325 MG TAB PO PRN (00:15)
[2020-11-22] MEDS ORDERED: POTASSIUM CHLORIDE 20 MEQ TAB CR PO PRN (00:15)
[2020-11-22] MEDS ORDERED: DIPHENHYDRAMINE HCL 25 MG CAP PO PRN (00:15)
[2020-11-22] MEDS ORDERED: DEXTROSE 50% SYRINGE 50 ML IV PRN (00:15)
[2020-11-22] MEDS ORDERED: HYDRALAZINE HCL 20 MG/ML VIAL IV PRN (00:15)
[2020-11-22] MEDS ORDERED: LIDOCAINE 4% PATCH TP PRN (00:15)
[2020-11-22] MEDS ORDERED: MELATONIN 5 MG TABLET PO PRN (00:15)
[2020-11-22] MEDS ORDERED: SIMETHICONE 80 MG CHEW PO PRN (00:15)
[2020-11-22 00:19] LABS: CREATINE KINASE MB 3.8 ng/mL (0-5.0)
[2020-11-22] MEDS ORDERED: PRAVACHOL20 MG PO (00:28)
[2020-11-22] MEDS ORDERED: LOSARTAN POTAS100 MG PO (00:28)
[2020-11-22] MEDS ORDERED: FLOMAX0.4 MG PO (00:28)
[2020-11-22] MEDS ORDERED: ASPIRIN EC81 MG PO (00:28)
[2020-11-22] MEDS: METOPROLOL TARTRATE 25 MG TAB PO SCH ×2 (01:00→08:11)
[2020-11-22 06:00] LABS: BASOPHILS % 0.4 % (0.0-1.0); EOSINOPHILS # (AUTO) 0.1 (0.0-0.4); EOSINOPHILS % 1.4 % (0.0-6.0); HEMATOCRIT 41.1 % (38.2-49.6); HEMOGLOBIN 13.6 g/dL (14.0-18.0); LYMPHOCYTES # (AUTO) 3.9 (1.0-3.2); MEAN CORPUSCULAR HEMOGLOBIN 29.4 pg (28-32); MEAN CORPUSCULAR HGB CONC 33.1 g/dL (31-35); MEAN CORPUSCULAR VOLUME 88.8 fL (81-99); MONOCYTES # (AUTO) 0.8 (0.2-0.8); MONOCYTES % 8.8 % (4.4-11.3); NEUTROPHILS # (AUTO) 4.5 (2.1-6.9); NEUTROPHILS % 48.1 % (38.7-80.0); PLATELET COUNT 243 x10e3/uL (140-360); RED BLOOD COUNT 4.63 x10e6/uL (4.3-5.7); RED CELL DISTRIBUTION WIDTH 13.2 % (11.7-14.4)
[2020-11-22 06:27] LABS: ALANINE AMINOTRANSFERASE 35 IU/L (0-55); ALBUMIN 3.7 g/dL (3.5-5.0); ALBUMIN/GLOBULIN RATIO 1.3 (0.8-2.0); ALKALINE PHOSPHATASE 40 IU/L (40-150); ANION GAP 12.2 mmol/L (8-16); BLOOD UREA NITROGEN 12 mg/dL (7-26); BUN/CREATININE RATIO 13 (6-25); CALCIUM 8.3 mg/dL (8.4-10.2); CARBON DIOXIDE 26 mmol/L (22-29); CHLORIDE 105 mmol/L (98-107); CREATININE, SERUM 0.91 mg/dL (0.72-1.25); EST GLOMERULAR FILTRATION RATE > 60 ML/MIN (60-); GLUCOSE 128 mg/dL (74-118); POTASSIUM 4.2 mmol/L (3.5-5.1); SODIUM 139 mmol/L (136-145)
[2020-11-22] MEDS: METOPROLOL TARTRATE INJ 1 MG/ML VIAL IV PRN (06:41)
[2020-11-22 07:14] LABS: CREATINE KINASE MB 3.6 ng/mL (0-5.0)
[2020-11-22] MEDS: APIXABAN 5 MG TABLET PO SCH ×2 (08:11→16:47)
[2020-11-22] MEDS: AMIODARONE HCL 200 MG TAB PO SCH ×2 (08:11→16:47)
[2020-11-22] MEDS: PANTOPRAZOLE SOD 40 MG TABEC PO SCH (08:11)
[2020-11-22] MEDS: ALBUTEROL/IPRATROPIUM 3 ML NEB NEB PRN ×2 (08:26→14:45)
[2020-11-22] MEDS ORDERED: APIXABAN 5 MG TABLET PO SCH (09:00)
[2020-11-22] MEDS ORDERED: METOPROLOL SUCC50 MG PO (11:22)
[2020-11-22 11:42] LABS: CREATINE KINASE MB 3.2 ng/mL (0-5.0)
[2020-11-22] MEDS ORDERED: METOPROLOL TARTRATE 25 MG TAB PO STA (17:55)
[2020-11-22] MEDS ORDERED: AMIODARONE HCL 200 MG TAB PO STA (17:55)
[2020-11-22] MEDS ORDERED: METOPROLOL TARTRATE 25 MG TAB PO SCH (21:00)
[2020-11-22] MEDS: METOPROLOL TARTRATE 50 MG TAB PO SCH (21:39)
[2020-11-23] VITALS: BP 121/86
[2020-11-23 04:00] VITALS: BP 99/79
[2020-11-23 05:54] LABS: BASOPHILS # (AUTO) 0.1 (0.0-0.1); BASOPHILS % 0.8 % (0.0-1.0); EOSINOPHILS # (AUTO) 0.1 (0.0-0.4); EOSINOPHILS % 1.6 % (0.0-6.0); HEMATOCRIT 42.9 % (38.2-49.6); HEMOGLOBIN 14.4 g/dL (14.0-18.0); LYMPHOCYTES # (AUTO) 3.5 (1.0-3.2); LYMPHOCYTES % 39.4 % (18.0-39.1); MEAN CORPUSCULAR HEMOGLOBIN 29.6 pg (28-32); MEAN CORPUSCULAR HGB CONC 33.6 g/dL (31-35); MEAN CORPUSCULAR VOLUME 88.3 fL (81-99); MONOCYTES # (AUTO) 0.7 (0.2-0.8); MONOCYTES % 7.7 % (4.4-11.3); NEUTROPHILS # (AUTO) 4.5 (2.1-6.9); NEUTROPHILS % 50.3 % (38.7-80.0); PLATELET COUNT 278 x10e3/uL (140-360); RED BLOOD COUNT 4.86 x10e6/uL (4.3-5.7); RED CELL DISTRIBUTION WIDTH 13.2 % (11.7-14.4)
[2020-11-23 06:12] LABS: ANION GAP 14.1 mmol/L (8-16); BLOOD UREA NITROGEN 13 mg/dL (7-26); BUN/CREATININE RATIO 14 (6-25); CALCIUM 8.5 mg/dL (8.4-10.2); CARBON DIOXIDE 25 mmol/L (22-29); CHLORIDE 105 mmol/L (98-107); CREATININE, SERUM 0.95 mg/dL (0.72-1.25); EST GLOMERULAR FILTRATION RATE > 60 ML/MIN (60-); GLUCOSE 130 mg/dL (74-118); POTASSIUM 4.1 mmol/L (3.5-5.1); SODIUM 140 mmol/L (136-145)
[2020-11-23 08:52] VITALS: BP 90/54
[2020-11-23] MEDS: METOPROLOL TARTRATE 50 MG TAB PO SCH (09:00)
[2020-11-23] MEDS ORDERED: AMIODARONE HCL 200 MG TAB PO SCH ×2 (09:00→17:00)
[2020-11-23] MEDS: APIXABAN 5 MG TABLET PO SCH (09:16)
[2020-11-23] MEDS: PANTOPRAZOLE SOD 40 MG TABEC PO SCH (09:16)
[2020-11-23 10:00] VITALS: BP 92/69
[2020-11-23] MEDS ORDERED: METOPROLOL SUCCINATE 50 MG TAB XL PO SCH (10:15)
[2020-11-23] MEDS ORDERED: AMIODARONE HCL200 MG PO (11:22)
[2020-11-23 12:40] VITALS: BP 118/72
[2020-11-23] MEDS ORDERED: ONDANSETRON HCL 4 MG ORAL DISINTEGRATING TAB PO PRN (14:00)
== END 2020-11-23 14:17 | disposition home or self-care (01) ==
LOC: ER 16:21 → ERHOLD 19:52 → INTOOBSV 19:52 → MED/SURG 20:52
PROVIDERS: ADMIT Internal Medicine; ATTEND Internal Medicine
DX: I48.0 Paroxysmal atrial fibrillation (principal); I50.33 Acute on chronic diastolic (congestive) heart failure; Z68.41 Body mass index [BMI] 40.0-44.9, adult; I11.0 Hypertensive heart disease with heart failure; E66.01 Morbid (severe) obesity due to excess calories; E78.5 Hyperlipidemia, unspecified; E03.9 Hypothyroidism, unspecified; Z79.02 Long term (current) use of antithrombotics/antiplatelets; Z20.822 Contact with and (suspected) exposure to COVID-19
CPT/HCPCS: 36415 ×3; 71045; 80048; 80053 ×2; 82550 ×2; 82553 ×2; 84484 ×2; 85025 ×3; 93005; 93306; 94640 ×2; 97116; 97161; 99284; G0378 ×3; J1160; J7030; S0164 ×2; U0002

== ENCOUNTER 2023-03-29 16:22 | Inpatient (IN) | payer MEDICARE ==
[~2023-03-29] VITALS: Ht 172.7 cm; Wt 114.3 kg
[~2023-03-29 16:22] MED LIST changes: +ASPIRIN EC81 MG PO; +FLOMAX0.4 MG PO; +LOSARTAN POTAS100 MG PO; +METOPROLOL SUCC50 MG PO; +PRAVACHOL20 MG PO
[2023-03-29] MEDS ORDERED: SODIUM CHLORIDE 0.9% 1000ML 1,000 ML IV STA ×2 (17:00→17:54)
[2023-03-29] MEDS ORDERED: ALBUTEROL/IPRATROPIUM 3 ML NEB NEB ONE (17:00)
[2023-03-29 17:10] VITALS: PULSE 102; RESP 37; O2SAT 97
[2023-03-29 17:11] LABS: BASOPHILS % 0.1 % (0.0-1.0); HEMATOCRIT 40.9 % (38.2-49.6); HEMOGLOBIN 13.8 g/dL (14.0-18.0); LYMPHOCYTES % 7.2 % (18.0-39.1); MEAN CORPUSCULAR HEMOGLOBIN 29.8 pg (28-32); MEAN CORPUSCULAR HGB CONC 33.7 g/dL (31-35); MEAN CORPUSCULAR VOLUME 88.3 fL (81-99); MONOCYTES # (AUTO) 1.1 (0.2-0.8); MONOCYTES % 7.8 % (4.4-11.3); NEUTROPHILS # (AUTO) 11.7 (2.1-6.9); NEUTROPHILS % 84.6 % (38.7-80.0); PLATELET COUNT 212 x10e3/uL (140-360); RED BLOOD COUNT 4.63 x10e6/uL (4.3-5.7)
[2023-03-29] MEDS ORDERED: METHYLPREDNISOLONE SOD SUCC 125 MG/2ML VIAL IV ONE (17:15)
[2023-03-29 17:26] LABS: ALBUMIN 3.9 g/dL (3.5-5.0); ANION GAP 17.7 mmol/L (8-16); CALCIUM 9.1 mg/dL (8.4-10.2); CREATININE, SERUM 1.59 mg/dL (0.72-1.25); POTASSIUM 3.7 mmol/L (3.5-5.1)
[2023-03-29 17:34] LABS: CREATINE KINASE MB 18.8 ng/mL (0-5.0)
[2023-03-29 17:35] LABS: B-TYPE NATRIURETIC PEPTIDE2 416.2 pg/mL (0-100)
[2023-03-29 17:38] VITALS: PULSE 102; RESP 37; O2SAT 97
[2023-03-29] MEDS ORDERED: ENOXAPARIN SODIUM INJ 100 MG/ML SYR SC STA (17:49)
[2023-03-29] MEDS ORDERED: ASPIRIN 81 MG CHEW TAB PO ONE (18:00)
[2023-03-29] MEDS ORDERED: CLOPIDOGREL BISULFATE 75 MG TAB PO ONE (18:00)
[2023-03-29] MEDS ORDERED: ONDANSETRON HCL INJ 2MG/ML 2ML 2 MG/ML VIAL IV PRN (18:45)
[2023-03-29 20:21] VITALS: PULSE 87; RESP 29; O2SAT 99
[2023-03-29 21:22] LABS: CLARITY,URINE SL CLOUDY (CLEAR); COLOR,URINE YELLOW (YELLOW); KETONES,URINE NEGATIVE (NEGATIVE); LEUKOCYTE ESTERASE ,URINE NEGATIVE (NEGATIVE); NITRITE,URINE POSITIVE (NEGATIVE); PROTEIN,URINE DIPSTICK >=300 (NEGATIVE); URINE UROBILINOGEN 1 mg/dL (0.2 - 1)
[2023-03-29 21:39] LABS: BACTERIA,URINE MANY /HPF; EPITHELIAL CELLS,URINE RARE /LPF
[2023-03-29] MEDS ORDERED: ALBUTEROL SULF 0.083% NEB SOLN 3 ML NEB NEB SCH (23:00)
[2023-03-29] MEDS ORDERED: ALBUTEROL/IPRATROPIUM 3 ML NEB NEB SCH (23:00)
[2023-03-30] VITALS (23 sets, daily range): BP systolic 95–140; BP diastolic 53–86; PULSE 60–98; RESP 16–26; TEMP 98–98.8; O2SAT 96–100
[2023-03-30] MEDS: SODIUM CHLORIDE 0.9% 1000ML 1,000 ML IV SCH ×3 (00:13→10:26)
[2023-03-30] MEDS: IPRATROPIUM BROMIDE 0.02% 2.5 ML NEB NEB SCH ×5 (00:15→23:20)
[2023-03-30] MEDS ORDERED: ACETAMINOPHEN 325 MG TAB PO PRN (01:15)
[2023-03-30] MEDS ORDERED: VANCOMYCIN HCL 1.25 GM in SODIUM CHLORIDE 0.9% 250ML 250 ML IV ONE ×2 (01:15→07:30)
[2023-03-30] MEDS ORDERED: MAGNESIUM/ALUMINUM/SIMETHICONE 30 ML UDC PO PRN (01:15)
[2023-03-30 03:17] LABS: ABG HCO3 24 mmol/L (22-26); ABG PCO2 37 mmHg (35-45); ABG PH 7.42 (7.35-7.45); ABG PO2 96 mmHg (80-105)
[2023-03-30 03:18] LABS: ABG TCO2 25
[2023-03-30 03:25] LABS: BASOPHILS % 0.1 % (0.0-1.0); HEMATOCRIT 35.9 % (38.2-49.6); HEMOGLOBIN 12.1 g/dL (14.0-18.0); LYMPHOCYTES # (AUTO) 1.1 (1.0-3.2); LYMPHOCYTES % 8.1 % (18.0-39.1); MEAN CORPUSCULAR HGB CONC 33.7 g/dL (31-35); MEAN CORPUSCULAR VOLUME 88.9 fL (81-99); MONOCYTES # (AUTO) 0.6 (0.2-0.8); MONOCYTES % 3.9 % (4.4-11.3); NEUTROPHILS # (AUTO) 12.3 (2.1-6.9); NEUTROPHILS % 87.5 % (38.7-80.0); PLATELET COUNT 188 x10e3/uL (140-360); RED BLOOD COUNT 4.04 x10e6/uL (4.3-5.7); RED CELL DISTRIBUTION WIDTH 13.9 % (11.7-14.4)
[2023-03-30 03:46] LABS: ALBUMIN 3.2 g/dL (3.5-5.0); ALBUMIN/GLOBULIN RATIO 0.9 (0.8-2.0); ANION GAP 15.5 mmol/L (8-16); CALCIUM 8.1 mg/dL (8.4-10.2); CREATININE, SERUM 1.2 mg/dL (0.72-1.25); POTASSIUM 3.5 mmol/L (3.5-5.1)
[2023-03-30 04:01] LABS: FREE THYROXINE INDEX 2.6023 (1.4-3.8); THYROID STIMULATING HORMONE 0.561 uIU/mL (0.350-4.940)
[2023-03-30] MEDS: HEPARIN SOD (PORCINE) 5,000 UNIT/ML VIAL SC SCH ×3 (06:31→22:16)
[2023-03-30] MEDS: MULTIVITAMINS/MINERALS TAB PO SCH (10:26)
[2023-03-30] MEDS: ASPIRIN 81 MG ENTERIC COATED PO SCH (10:26)
[2023-03-30] MEDS: SENNOSIDES 8.6 MG TAB PO SCH (10:26)
[2023-03-30] MEDS: METHYLPREDNISOLONE SOD SUCC 40 MG/ML VIAL 1ML IV SCH ×2 (10:26→21:40)
[2023-03-30] MEDS: POLYETHYLENE GLYCOL 3350 17 GM PACK PO SCH ×2 (10:26→17:54)
[2023-03-30 11:43] LABS: CREATINE KINASE MB 13.9 ng/mL (0-5.0)
[2023-03-30] MEDS ORDERED: PIPERACILLIN/TAZOBACTAM 3.375 GM VIAL ONE (15:08)
[2023-03-30] MEDS: ALBUTEROL SULF 0.083% NEB SOLN 3 ML NEB NEB PRN (23:20)
[2023-03-31] VITALS (33 sets, daily range): BP systolic 119–171; BP diastolic 70–124; PULSE 60–99; RESP 17–28; TEMP 97.6–98.8; O2SAT 94–100
[2023-03-31] MEDS: IPRATROPIUM BROMIDE 0.02% 2.5 ML NEB NEB SCH ×6 (00:55→20:00)
[2023-03-31] MEDS: SODIUM CHLORIDE 0.9% 1000ML 1,000 ML IV SCH (03:07)
[2023-03-31] MEDS: HEPARIN SOD (PORCINE) 5,000 UNIT/ML VIAL SC SCH ×3 (06:28→22:03)
[2023-03-31 07:13] LABS: BASOPHILS % 0.2 % (0.0-1.0); HEMATOCRIT 35.7 % (38.2-49.6); HEMOGLOBIN 11.9 g/dL (14.0-18.0); LYMPHOCYTES # (AUTO) 0.9 (1.0-3.2); LYMPHOCYTES % 5.9 % (18.0-39.1); MEAN CORPUSCULAR HEMOGLOBIN 29.8 pg (28-32); MEAN CORPUSCULAR HGB CONC 33.3 g/dL (31-35); MEAN CORPUSCULAR VOLUME 89.5 fL (81-99); MONOCYTES # (AUTO) 0.9 (0.2-0.8); MONOCYTES % 5.7 % (4.4-11.3); NEUTROPHILS # (AUTO) 13.3 (2.1-6.9); NEUTROPHILS % 87.5 % (38.7-80.0); PLATELET COUNT 215 x10e3/uL (140-360); RED BLOOD COUNT 3.99 x10e6/uL (4.3-5.7); RED CELL DISTRIBUTION WIDTH 13.8 % (11.7-14.4)
[2023-03-31 07:40] LABS: ALBUMIN 3.1 g/dL (3.5-5.0); ALBUMIN/GLOBULIN RATIO 1.1 (0.8-2.0); ANION GAP 13.6 mmol/L (8-16); CALCIUM 7.7 mg/dL (8.4-10.2); CREATININE, SERUM 0.91 mg/dL (0.72-1.25); MAGNESIUM 2.2 MG/DL (1.3-2.1); PHOSPHORUS 2.4 MG/DL (2.3-4.7); POTASSIUM 3.6 mmol/L (3.5-5.1)
[2023-03-31] MEDS: MULTIVITAMINS/MINERALS TAB PO SCH (08:41)
[2023-03-31] MEDS: POLYETHYLENE GLYCOL 3350 17 GM PACK PO SCH ×2 (08:41→16:53)
[2023-03-31] MEDS: ASPIRIN 81 MG ENTERIC COATED PO SCH (08:41)
[2023-03-31] MEDS: SENNOSIDES 8.6 MG TAB PO SCH (08:41)
[2023-03-31 09:05] LABS: CHOL/HDL RATIO 7.3 (3.9-4.7)
[2023-03-31] MEDS: METHYLPREDNISOLONE SOD SUCC 40 MG/ML VIAL 1ML IV SCH (09:38)
[2023-03-31] MEDS: ALBUTEROL SULF 0.083% NEB SOLN 3 ML NEB NEB PRN ×3 (11:06→20:00)
[2023-03-31] MEDS ORDERED: FUROSEMIDE INJ 10 MG/ML 4 ML VIAL IV ONE (13:00)
[2023-03-31] MEDS: MELATONIN 3 MG TAB PO PRN ×2 (21:41→21:53)
[2023-03-31] MEDS: MELATONIN 5 MG TABLET PO SCH (22:00)
[2023-04-01] VITALS (26 sets, daily range): BP systolic 102–176; BP diastolic 72–152; PULSE 70–108; RESP 15–31; TEMP 97.6–98.8; O2SAT 92–100
[2023-04-01] MEDS: ALBUTEROL SULF 0.083% NEB SOLN 3 ML NEB NEB PRN ×4 (00:55→11:30)
[2023-04-01] MEDS: IPRATROPIUM BROMIDE 0.02% 2.5 ML NEB NEB SCH ×6 (04:15→23:30)
[2023-04-01] MEDS: HEPARIN SOD (PORCINE) 5,000 UNIT/ML VIAL SC SCH ×3 (06:02→22:08)
[2023-04-01] MEDS: SENNOSIDES 8.6 MG TAB PO SCH (08:17)
[2023-04-01] MEDS: POLYETHYLENE GLYCOL 3350 17 GM PACK PO SCH ×2 (08:17→17:06)
[2023-04-01] MEDS: MULTIVITAMINS/MINERALS TAB PO SCH (08:17)
[2023-04-01] MEDS: ASPIRIN 81 MG ENTERIC COATED PO SCH (08:17)
[2023-04-01 08:38] LABS: BASOPHILS % 0.2 % (0.0-1.0); HEMATOCRIT 36.8 % (38.2-49.6); HEMOGLOBIN 12.2 g/dL (14.0-18.0); LYMPHOCYTES # (AUTO) 1.6 (1.0-3.2); LYMPHOCYTES % 10.9 % (18.0-39.1); MEAN CORPUSCULAR HEMOGLOBIN 29.6 pg (28-32); MEAN CORPUSCULAR HGB CONC 33.2 g/dL (31-35); MEAN CORPUSCULAR VOLUME 89.3 fL (81-99); MONOCYTES # (AUTO) 1.1 (0.2-0.8); MONOCYTES % 7.4 % (4.4-11.3); NEUTROPHILS # (AUTO) 11.8 (2.1-6.9); NEUTROPHILS % 79.4 % (38.7-80.0); PLATELET COUNT 250 x10e3/uL (140-360); RED BLOOD COUNT 4.12 x10e6/uL (4.3-5.7); RED CELL DISTRIBUTION WIDTH 14.2 % (11.7-14.4)
[2023-04-01 08:57] LABS: ALBUMIN 3.1 g/dL (3.5-5.0); ALBUMIN/GLOBULIN RATIO 0.9 (0.8-2.0); ANION GAP 14.2 mmol/L (8-16); CALCIUM 8.2 mg/dL (8.4-10.2); CREATININE, SERUM 0.93 mg/dL (0.72-1.25); POTASSIUM 3.2 mmol/L (3.5-5.1)
[2023-04-01] MEDS ORDERED: POTASSIUM CHLORIDE 20 MEQ TAB CR PO NR (10:00)
[2023-04-01] MEDS ORDERED: METHYLPREDNISOLONE SOD SUCC 40 MG/ML VIAL 1ML IV ONE (12:45)
[2023-04-01] MEDS ORDERED: FUROSEMIDE INJ 10 MG/ML 4 ML VIAL IV ONE (12:45)
[2023-04-01] MEDS: HYDRALAZINE HCL 20 MG/ML VIAL IV PRN (13:52)
[2023-04-01] MEDS: MELATONIN 5 MG TABLET PO SCH (21:46)
[2023-04-02] VITALS (26 sets, daily range): BP systolic 121–189; BP diastolic 70–114; PULSE 71–104; RESP 13–28; TEMP 97.8–98.4; O2SAT 93–100
[2023-04-02] MEDS: IPRATROPIUM BROMIDE 0.02% 2.5 ML NEB NEB SCH ×6 (03:02→23:50)
[2023-04-02] MEDS: HEPARIN SOD (PORCINE) 5,000 UNIT/ML VIAL SC SCH ×3 (05:20→21:05)
[2023-04-02 05:40] LABS: BASOPHILS % 0.3 % (0.0-1.0); EOSINOPHILS % 0.2 % (0.0-6.0); HEMATOCRIT 37.4 % (38.2-49.6); HEMOGLOBIN 12.5 g/dL (14.0-18.0); LYMPHOCYTES % 14.1 % (18.0-39.1); MEAN CORPUSCULAR HEMOGLOBIN 29.6 pg (28-32); MEAN CORPUSCULAR HGB CONC 33.4 g/dL (31-35); MEAN CORPUSCULAR VOLUME 88.6 fL (81-99); MONOCYTES # (AUTO) 1.1 (0.2-0.8); MONOCYTES % 7.7 % (4.4-11.3); NEUTROPHILS # (AUTO) 10.7 (2.1-6.9); NEUTROPHILS % 74.7 % (38.7-80.0); PLATELET COUNT 242 x10e3/uL (140-360); RED BLOOD COUNT 4.22 x10e6/uL (4.3-5.7); RED CELL DISTRIBUTION WIDTH 14.1 % (11.7-14.4)
[2023-04-02 06:10] LABS: ALBUMIN 2.9 g/dL (3.5-5.0); ALBUMIN/GLOBULIN RATIO 0.8 (0.8-2.0); ANION GAP 11.5 mmol/L (8-16); CALCIUM 8.1 mg/dL (8.4-10.2); CREATININE, SERUM 0.85 mg/dL (0.72-1.25); POTASSIUM 3.5 mmol/L (3.5-5.1)
[2023-04-02] MEDS: MULTIVITAMINS/MINERALS TAB PO SCH (10:27)
[2023-04-02] MEDS: SENNOSIDES 8.6 MG TAB PO SCH (10:27)
[2023-04-02] MEDS: ASPIRIN 81 MG ENTERIC COATED PO SCH (10:27)
[2023-04-02] MEDS: POLYETHYLENE GLYCOL 3350 17 GM PACK PO SCH ×2 (10:30→18:04)
[2023-04-02] MEDS ORDERED: GUAIFENESIN 600 MG TAB PO PRN (17:30)
[2023-04-02] MEDS: BENZONATATE 100 MG CAP PO PRN (17:40)
[2023-04-02] MEDS: HYDRALAZINE HCL 20 MG/ML VIAL IV PRN ×2 (18:08→23:24)
[2023-04-02] MEDS: ATORVASTATIN 40 MG TAB PO SCH (21:05)
[2023-04-02] MEDS: MELATONIN 5 MG TABLET PO SCH (21:05)
[2023-04-03] VITALS (25 sets, daily range): BP systolic 105–185; BP diastolic 70–112; PULSE 86–126; RESP 16–35; TEMP 98.2–101.4; O2SAT 92–100
[2023-04-03] MEDS: MELATONIN 3 MG TAB PO PRN (00:41)
[2023-04-03] MEDS: BENZONATATE 100 MG CAP PO PRN (02:38)
[2023-04-03] MEDS: IPRATROPIUM BROMIDE 0.02% 2.5 ML NEB NEB SCH ×6 (03:10→23:30)
[2023-04-03] MEDS: ALBUTEROL SULF 0.083% NEB SOLN 3 ML NEB NEB PRN ×2 (03:10→19:10)
[2023-04-03] MEDS ORDERED: LORAZEPAM INJ 2 MG/ML VIAL IV ONE (03:15)
[2023-04-03] MEDS ORDERED: FUROSEMIDE INJ 10 MG/ML 4 ML VIAL IV ONE (03:15)
[2023-04-03] MEDS: HYDRALAZINE HCL 20 MG/ML VIAL IV PRN (04:04)
[2023-04-03] MEDS: HEPARIN SOD (PORCINE) 5,000 UNIT/ML VIAL SC SCH ×3 (05:47→21:49)
[2023-04-03 06:38] LABS: BASOPHILS # (AUTO) 0.1 (0.0-0.1); BASOPHILS % 0.7 % (0.0-1.0); EOSINOPHILS # (AUTO) 0.1 (0.0-0.4); EOSINOPHILS % 0.7 % (0.0-6.0); HEMATOCRIT 41.8 % (38.2-49.6); HEMOGLOBIN 13.5 g/dL (14.0-18.0); LYMPHOCYTES # (AUTO) 2.7 (1.0-3.2); LYMPHOCYTES % 17.5 % (18.0-39.1); MEAN CORPUSCULAR HEMOGLOBIN 29.3 pg (28-32); MEAN CORPUSCULAR HGB CONC 32.3 g/dL (31-35); MEAN CORPUSCULAR VOLUME 90.9 fL (81-99); MONOCYTES # (AUTO) 1.3 (0.2-0.8); MONOCYTES % 8.2 % (4.4-11.3); NEUTROPHILS # (AUTO) 10.4 (2.1-6.9); NEUTROPHILS % 68.5 % (38.7-80.0); PLATELET COUNT 269 x10e3/uL (140-360); RED CELL DISTRIBUTION WIDTH 13.9 % (11.7-14.4)
[2023-04-03 07:06] LABS: ALBUMIN 3.1 g/dL (3.5-5.0); ALBUMIN/GLOBULIN RATIO 0.9 (0.8-2.0); ANION GAP 13.1 mmol/L (8-16); CALCIUM 8.2 mg/dL (8.4-10.2); CREATININE, SERUM 0.97 mg/dL (0.72-1.25); POTASSIUM 3.1 mmol/L (3.5-5.1)
[2023-04-03] MEDS ORDERED: POTASSIUM CHLORIDE 20MEQ/100ML 200 ML IV ONE (08:30)
[2023-04-03] MEDS: POLYETHYLENE GLYCOL 3350 17 GM PACK PO SCH ×2 (10:17→17:00)
[2023-04-03] MEDS: MULTIVITAMINS/MINERALS TAB PO SCH (10:17)
[2023-04-03] MEDS: ASPIRIN 81 MG ENTERIC COATED PO SCH (10:17)
[2023-04-03] MEDS: SENNOSIDES 8.6 MG TAB PO SCH (10:21)
[2023-04-03] MEDS: POTASSIUM CHLORIDE 20MEQ/100ML 100 ML IV SCH ×2 (10:42→12:58)
[2023-04-03] MEDS: FUROSEMIDE INJ 10 MG/ML 4 ML VIAL IV SCH ×2 (14:57→21:48)
[2023-04-03] MEDS ORDERED: LORAZEPAM INJ 2 MG/ML VIAL IV PRN (19:15)
[2023-04-03] MEDS ORDERED: ACETAMINOPHEN 1000 MG/100 ML IV ONE (20:30)
[2023-04-03] MEDS: ATORVASTATIN 40 MG TAB PO SCH (20:47)
[2023-04-03] MEDS: MELATONIN 5 MG TABLET PO SCH (20:47)
[2023-04-04] VITALS (21 sets, daily range): BP systolic 97–132; BP diastolic 52–86; PULSE 85–106; RESP 20–30; TEMP 98.2–99.7; O2SAT 84–99
[2023-04-04] MEDS: IPRATROPIUM BROMIDE 0.02% 2.5 ML NEB NEB SCH ×6 (03:15→23:20)
[2023-04-04] MEDS: HEPARIN SOD (PORCINE) 5,000 UNIT/ML VIAL SC SCH ×3 (06:26→22:32)
[2023-04-04 06:52] LABS: BASOPHILS # (AUTO) 0.1 (0.0-0.1); BASOPHILS % 0.4 % (0.0-1.0); EOSINOPHILS # (AUTO) 0.4 (0.0-0.4); EOSINOPHILS % 2.4 % (0.0-6.0); HEMATOCRIT 41.6 % (38.2-49.6); HEMOGLOBIN 13.6 g/dL (14.0-18.0); LYMPHOCYTES # (AUTO) 4.2 (1.0-3.2); LYMPHOCYTES % 28.4 % (18.0-39.1); MEAN CORPUSCULAR HEMOGLOBIN 29.6 pg (28-32); MEAN CORPUSCULAR HGB CONC 32.7 g/dL (31-35); MEAN CORPUSCULAR VOLUME 90.6 fL (81-99); MONOCYTES # (AUTO) 1.1 (0.2-0.8); MONOCYTES % 7.6 % (4.4-11.3); NEUTROPHILS # (AUTO) 8.5 (2.1-6.9); NEUTROPHILS % 57.6 % (38.7-80.0); PLATELET COUNT 241 x10e3/uL (140-360); RED BLOOD COUNT 4.59 x10e6/uL (4.3-5.7); RED CELL DISTRIBUTION WIDTH 14.3 % (11.7-14.4)
[2023-04-04] MEDS: ALBUTEROL SULF 0.083% NEB SOLN 3 ML NEB NEB PRN ×2 (07:14→19:30)
[2023-04-04 07:19] LABS: MAGNESIUM 2.3 MG/DL (1.3-2.1); PHOSPHORUS 3.7 MG/DL (2.3-4.7)
[2023-04-04 07:21] LABS: ALBUMIN/GLOBULIN RATIO 0.9 (0.8-2.0); ANION GAP 14.2 mmol/L (8-16); CALCIUM 8.2 mg/dL (8.4-10.2); CREATININE, SERUM 0.92 mg/dL (0.72-1.25); POTASSIUM 3.2 mmol/L (3.5-5.1)
[2023-04-04] MEDS: FUROSEMIDE INJ 10 MG/ML 4 ML VIAL IV SCH ×2 (08:36→09:00)
[2023-04-04] MEDS: POTASSIUM CHLORIDE 20MEQ/100ML 100 ML IV SCH ×2 (08:36→15:54)
[2023-04-04] MEDS: POLYETHYLENE GLYCOL 3350 17 GM PACK PO SCH ×2 (08:43→17:07)
[2023-04-04] MEDS: ASPIRIN 81 MG ENTERIC COATED PO SCH (08:43)
[2023-04-04] MEDS: SENNOSIDES 8.6 MG TAB PO SCH (08:43)
[2023-04-04] MEDS: MULTIVITAMINS/MINERALS TAB PO SCH (08:43)
[2023-04-04 09:54] LABS: EOSINOPHILS % (MANUAL) 2 % (0-7); LYMPHOCYTES % (MANUAL) 21 % (19-48); MONOCYTES % (MANUAL) 6 % (3.4-9.0); NEUTROPHILS % (MANUAL) 58 % (40-74)
[2023-04-04 09:55] LABS: PLATELET ESTIMATE ADEQUATE; PLATELET MORPHOLOGY COMMENT NORMAL; RBC MORPHOLOGY COMMENT NORMAL
[2023-04-04] MEDS ORDERED: POTASSIUM CHLORIDE 20MEQ/100ML 100 ML IV ONE (15:45)
[2023-04-04] MEDS: MELATONIN 5 MG TABLET PO SCH (21:30)
[2023-04-04] MEDS: ATORVASTATIN 40 MG TAB PO SCH (21:30)
[2023-04-05] VITALS (20 sets, daily range): BP systolic 91–142; BP diastolic 25–76; PULSE 68–101; RESP 18–29; TEMP 97.6–99.1; O2SAT 91–96
[2023-04-05] MEDS: IPRATROPIUM BROMIDE 0.02% 2.5 ML NEB NEB SCH ×6 (03:05→22:55)
[2023-04-05] MEDS: HEPARIN SOD (PORCINE) 5,000 UNIT/ML VIAL SC SCH ×3 (06:16→21:13)
[2023-04-05 06:33] LABS: BASOPHILS # (AUTO) 0.1 (0.0-0.1); BASOPHILS % 0.6 % (0.0-1.0); EOSINOPHILS # (AUTO) 0.4 (0.0-0.4); EOSINOPHILS % 2.5 % (0.0-6.0); HEMATOCRIT 41.3 % (38.2-49.6); HEMOGLOBIN 13.2 g/dL (14.0-18.0); LYMPHOCYTES # (AUTO) 6.3 (1.0-3.2); MEAN CORPUSCULAR HEMOGLOBIN 29.7 pg (28-32); MEAN CORPUSCULAR VOLUME 92.8 fL (81-99); MONOCYTES # (AUTO) 0.9 (0.2-0.8); MONOCYTES % 6.5 % (4.4-11.3); NEUTROPHILS # (AUTO) 6.1 (2.1-6.9); NEUTROPHILS % 43.6 % (38.7-80.0); PLATELET COUNT 261 x10e3/uL (140-360); RED BLOOD COUNT 4.45 x10e6/uL (4.3-5.7); RED CELL DISTRIBUTION WIDTH 14.2 % (11.7-14.4)
[2023-04-05 06:49] LABS: ALBUMIN 2.9 g/dL (3.5-5.0); ALBUMIN/GLOBULIN RATIO 0.9 (0.8-2.0); ANION GAP 12.4 mmol/L (8-16); CALCIUM 8.5 mg/dL (8.4-10.2); CREATININE, SERUM 0.95 mg/dL (0.72-1.25); POTASSIUM 3.4 mmol/L (3.5-5.1)
[2023-04-05 07:10] LABS: BAND NEUTROPHILS % (MANUAL) 1 %; EOSINOPHILS % (MANUAL) 3 % (0-7); LYMPHOCYTES % (MANUAL) 19 % (19-48); MONOCYTES % (MANUAL) 7 % (3.4-9.0); NEUTROPHILS % (MANUAL) 49 % (40-74)
[2023-04-05 07:11] LABS: PLATELET ESTIMATE ADEQUATE; PLATELET MORPHOLOGY COMMENT NORMAL; RBC MORPHOLOGY COMMENT NORMAL
[2023-04-05] MEDS: ASPIRIN 81 MG ENTERIC COATED PO SCH (08:03)
[2023-04-05] MEDS: POLYETHYLENE GLYCOL 3350 17 GM PACK PO SCH ×2 (08:03→17:33)
[2023-04-05] MEDS: FUROSEMIDE INJ 10 MG/ML 4 ML VIAL IV SCH (08:03)
[2023-04-05] MEDS: MULTIVITAMINS/MINERALS TAB PO SCH (08:03)
[2023-04-05] MEDS: SENNOSIDES 8.6 MG TAB PO SCH (08:03)
[2023-04-05] MEDS: POTASSIUM CHLORIDE 20 MEQ TAB CR PO SCH (11:16)
[2023-04-05] MEDS: ALBUTEROL SULF 0.083% NEB SOLN 3 ML NEB NEB PRN ×2 (18:55→22:55)
[2023-04-05] MEDS: MELATONIN 5 MG TABLET PO SCH ×2 (21:04→22:56)
[2023-04-05] MEDS: ATORVASTATIN 40 MG TAB PO SCH (21:05)
[2023-04-06] VITALS (11 sets, daily range): BP systolic 108–137; BP diastolic 53–83; PULSE 73–91; RESP 18–20; TEMP 97.3–98.5; O2SAT 90–98
[2023-04-06] MEDS: IPRATROPIUM BROMIDE 0.02% 2.5 ML NEB NEB SCH ×5 (02:35→19:38)
[2023-04-06] MEDS: ALBUTEROL SULF 0.083% NEB SOLN 3 ML NEB NEB PRN ×2 (02:35→19:39)
[2023-04-06 09:31] LABS: BASOPHILS # (AUTO) 0.1 (0.0-0.1); BASOPHILS % 0.5 % (0.0-1.0); EOSINOPHILS # (AUTO) 0.4 (0.0-0.4); EOSINOPHILS % 2.4 % (0.0-6.0); HEMATOCRIT 42.3 % (38.2-49.6); HEMOGLOBIN 13.5 g/dL (14.0-18.0); LYMPHOCYTES # (AUTO) 6.8 (1.0-3.2); LYMPHOCYTES % 45.8 % (18.0-39.1); MEAN CORPUSCULAR HEMOGLOBIN 29.2 pg (28-32); MEAN CORPUSCULAR HGB CONC 31.9 g/dL (31-35); MEAN CORPUSCULAR VOLUME 91.6 fL (81-99); MONOCYTES # (AUTO) 0.8 (0.2-0.8); MONOCYTES % 5.5 % (4.4-11.3); NEUTROPHILS # (AUTO) 6.6 (2.1-6.9); NEUTROPHILS % 44.5 % (38.7-80.0); PLATELET COUNT 278 x10e3/uL (140-360); RED BLOOD COUNT 4.62 x10e6/uL (4.3-5.7); RED CELL DISTRIBUTION WIDTH 13.7 % (11.7-14.4)
[2023-04-06 09:53] LABS: ALBUMIN 3.3 g/dL (3.5-5.0); ALBUMIN/GLOBULIN RATIO 0.9 (0.8-2.0); ANION GAP 14.7 mmol/L (8-16); CALCIUM 9.1 mg/dL (8.4-10.2); CREATININE, SERUM 1.15 mg/dL (0.72-1.25); POTASSIUM 3.7 mmol/L (3.5-5.1)
[2023-04-06] MEDS: POLYETHYLENE GLYCOL 3350 17 GM PACK PO SCH ×2 (09:58→17:21)
[2023-04-06] MEDS: ASPIRIN 81 MG ENTERIC COATED PO SCH (09:58)
[2023-04-06] MEDS: POTASSIUM CHLORIDE 20 MEQ TAB CR PO SCH (09:58)
[2023-04-06] MEDS: MULTIVITAMINS/MINERALS TAB PO SCH (09:58)
[2023-04-06] MEDS: FUROSEMIDE INJ 10 MG/ML 4 ML VIAL IV SCH (09:58)
[2023-04-06] MEDS: SENNOSIDES 8.6 MG TAB PO SCH (09:59)
[2023-04-06 10:15] LABS: EOSINOPHILS % (MANUAL) 2 % (0-7); LYMPHOCYTES % (MANUAL) 34 % (19-48); MONOCYTES % (MANUAL) 2 % (3.4-9.0); NEUTROPHILS % (MANUAL) 53 % (40-74)
[2023-04-06 10:16] LABS: PLATELET ESTIMATE ADEQUATE; PLATELET MORPHOLOGY COMMENT NORMAL; POLYCHROMASIA FEW; RBC MORPHOLOGY COMMENT NORMAL
[2023-04-06] MEDS ORDERED: ONDANSETRON HCL 4 MG ORAL DISINTEGRATING TAB PO PRN (12:00)
== END 2023-04-06 22:17 | DRG 871 ==
LOC: ER 17:09 → ERHOLD 18:44 → ICU 03-30 07:26 → MED/SURG2 04-05 15:15
PROVIDERS: ADMIT Internal Medicine; ATTEND Internal Medicine
DX: A41.9 Sepsis, unspecified organism (principal); I21.A1 Myocardial infarction type 2; J96.21 Acute and chronic respiratory failure with hypoxia; J69.0 Pneumonitis due to inhalation of food and vomit; N39.0 Urinary tract infection, site not specified; M62.82 Rhabdomyolysis; N17.9 Acute kidney failure, unspecified; Z68.41 Body mass index [BMI] 40.0-44.9, adult; I50.32 Chronic diastolic (congestive) heart failure; B96.20 Unspecified Escherichia coli [E. coli] as the cause of diseases classified elsewhere; R79.89 Other specified abnormal findings of blood chemistry; R77.8 Other specified abnormalities of plasma proteins; R74.01 Elevation of levels of liver transaminase levels; I11.0 Hypertensive heart disease with heart failure; E66.01 Morbid (severe) obesity due to excess calories; K59.00 Constipation, unspecified; E78.5 Hyperlipidemia, unspecified; E86.0 Dehydration; N40.0 Benign prostatic hyperplasia without lower urinary tract symptoms; D64.9 Anemia, unspecified; R00.0 Tachycardia, unspecified; R16.1 Splenomegaly, not elsewhere classified; I48.0 Paroxysmal atrial fibrillation; G47.33 Obstructive sleep apnea (adult) (pediatric); Z20.822 Contact with and (suspected) exposure to COVID-19; Z59.6 Low income; Z79.82 Long term (current) use of aspirin; Z99.81 Dependence on supplemental oxygen; Z86.16 Personal history of COVID-19
CPT/HCPCS: 36415; 36600; 51700; 71045; 71260; 74177; 74230; 76700; 80053; 80061; 81001; 82550; 82553; 82805; 83605; 83690; 83735; 83880; 84100; 84436; 84443; 84479; 84484; 85025; 85379; 85730; 87040; 87086; 87186; 87299; 93005; 93306; 94640; 94660; 94799; 96360; 99252; 99285; J1644; J1650; J1940; J2060; J2543; J2920; J2930; J3480; J7030; J7050